=== PATIENT | male | born 1995 | race Hispanic/Latino ===

== ENCOUNTER 2020-09-19 15:58 | Inpatient (IN) | payer SELFPAY ==
[2020-09-19] MEDS ORDERED: Sodium Bicarb 50 MEQ/50 ML Abboject 8.4% SYRINGE ONE (16:16)
[2020-09-19] MEDS ORDERED: Sodium Bicarbonate 150 MEQ in Sodium Chloride 0.45% 1,000 ML IV SCH (16:30)
[2020-09-19 16:32] LABS: #Basophils 0.1 thou/uL (0.0-0.2); #Lymphocytes 3.7 thou/uL (1.20-3.40); #Monocytes 0.6 thou/uL (0.11-0.59); #Neutrophils 9.8 thou/uL (1.40-6.50); %Basophils 0.7 % (0.0-1.0); %Eosinophils 0.3 % (0.0-10.0); %Lymphocytes 25.8 % (21.0-51.0); %Monocytes 4.1 % (0.0-10.0); %Neutrophils 69.1 % (42.0-75.0); Mean Corpuscular HGB CONC 32.6 g/dL (32.0-36.0); Mean Corpuscular Hemoglobin 29.4 pg (27.0-31.0); Mean Platelet Volume 9.7 fL (7.4-10.4); Platelet Count 287 thou/uL (130-400); Red Blood Cell (RBC) Count 6.12 mill/uL (4.70-6.10); White Blood Cell (WBC) Count 14.2 thou/uL (4.8-10.8)
[2020-09-19 16:48] LABS: Bacteria/HPF None Seen HPF (None Seen); Bilirubin Negative (Negative); Blood, Urine 1+ (Negative); Clarity Clear (Clear); Glucose, Urine (Dipstick) Greater than 1000 mg/dL (Negative); Ketone, Urine Greater than 150 mg/dL (Negative); Leukocyte Negative Leu/uL (Negative); Nitrite Negative (Negative); Protein, Urine (Dipstick) 100 mg/dL (Neg-Trace); RBC/HPF None Seen HPF (0-3); Squamous Epithelial 0-3 HPF (0-3); Urobilinogen Normal mg/dL (Less than 2); WBC/HPF 0-3 HPF (0-3); pH, Urine 5.5 (5.0-9.0)
[2020-09-19 16:56] LABS: Magnesium 2.2 mg/dL (1.6-2.6); Phosphorus 5.5 mg/dL (2.3-4.7)
[2020-09-19 16:59] LABS: Acetaminophen Less than 6.0 mcg/mL (10.0-30.0); Alcohol Less than 10 mg/dL (Less than 10); Salicylate Less than 8.0 mg/dL (15.0-30.0)
[2020-09-19 17:01] LABS: Amphetamine Not Detected (NotDetected); Barbiturates Screen Not Detected (NotDetected); Benzodiazepine Screen Not Detected (NotDetected); Cocaine Metabolite Screen Not Detected (NotDetected); Medtox Control Line Valid? VALID (VALID); Medtox Reader # READER 4; Methadone Not Detected (NotDetected); Methamphetamine Not Detected (NotDetected); Opiate Screen Not Detected (NotDetected); Oxycodone Screen Not Detected (NotDetected); Phencyclidine (PCP) Not Detected (NotDetected); THC/Cannabinoid Screen Not Detected (NotDetected); Tricyclic Screen Not Detected (NotDetected)
--- NOTE | 2020-09-19 17:47 | RAD ---
PORTABLE CHEST: 09/19/20 PROVIDED CLINICAL HISTORY: Altered mental status. FINDINGS: The cardiac and mediastinal silhouette is within normal limits. No focal consolidation is evident. No evidence for pleural fluid or pneumothorax, with limitations due to the supine nature of the study. IMPRESSION: No evidence for an acute cardiopulmonary process. POS: CAITIE
[2020-09-19 18:10] LABS: ALT (SGPT) 13 U/L (8-55); AST (SGOT) 11 U/L (5-34); Albumin 4.4 g/dL (3.5-5.0); Alkaline Phosphatase 124 U/L (40-110); BUN (Urea Nitrogen) 15 mg/dL (8.9-20.6); Bilirubin, Total 0.3 mg/dL (0.2-1.2); Calc. Creatinine Clearance 0 mL/min (70-130); Calcium 8.9 mg/dL (7.8-10.44); Chloride 106 mmol/L (98-107); Globulin 2.7 g/dL (2.4-3.5); Potassium 4.2 mmol/L (3.5-5.1); Protein, Total 7.1 g/dL (6.0-8.3); Sodium 139 mmol/L (136-145)
[2020-09-19 18:15] LABS: Carbon Dioxide Less than 8 mmol/L (22-29); Glucose 553 mg/dL (70-105)
[2020-09-19 18:42] LABS: BUN (Urea Nitrogen) 13 mg/dL (8.9-20.6); Calc. Creatinine Clearance 0 mL/min (70-130); Calcium 7.4 mg/dL (7.8-10.44); Carbon Dioxide Less than 8 mmol/L (22-29); Chloride 113 mmol/L (98-107); Glucose 461 mg/dL (70-105); Potassium 4.5 mmol/L (3.5-5.1); Sodium 142 mmol/L (136-145)
[2020-09-19] MEDS ORDERED: INSULIN REGULAR IN 0.9 % NACL 100 UNIT/100 ML BAG IVPB SCH (18:45)
[2020-09-19] MEDS ORDERED: INSULIN REGULAR IN 0.9 % NACL 100 UNIT/100 ML BAG ONE (18:48)
[2020-09-19] MEDS ORDERED: Ondansetron ODT 4 MG TAB PO PRN (19:40)
[2020-09-19] MEDS ORDERED: Electrolyte Replacement Protocol 1 EACH IVPB SCH (19:40)
[2020-09-19] MEDS ORDERED: Sodium Chloride 0.9% 1,000 ML IV PRN ×4 (19:40)
[2020-09-19] MEDS ORDERED: Ondansetron PF 4 MG/2 ML Vial IVP PRN (19:40)
[2020-09-19] MEDS ORDERED: NS 0.9% w/ 20 MEQ KCL 1,000 ML IV PRN ×2 (19:40)
[2020-09-19] MEDS ORDERED: Dextrose 5 %-0.45 % NaCl 1,000 ML IV PRN (19:40)
[2020-09-19] MEDS ORDERED: Electrolyte Replacement Protocol FS PRN (19:45)
[2020-09-19] MEDS ORDERED: HUMULIN R 100 UNITS in Sodium Chloride 0.9% 100 ML IVPB SCH (19:45)
--- NOTE | 2020-09-19 19:57 | PDOC.HHP ---
Hospitalist HPI Nausea and vomiting History of Present Illness: This is a 25-year-old male patient with a history of diabetes mellitus, hyperlipidemia who presents with a 3-day history of general unwellness with nausea and vomiting. He is only Syrian-speaking and his friend who came with him today interpretation. He notes that he was diagnosed with diabetes about 3 months ago and has been on oral medications. It appears he ran out of his medication and could not refill. He notes having not had any money. 3 days ago started having nausea and vomiting with general unwellness which became worse of some confusion. He also had associated with polyuria polydipsia and dry mouth however denies any dysuria fever cough or chest pain. On arrival blood pressure was 142/105, pulse 140, respirate 36, saturating 90% on room air. He was afebrile temperature of 96.8. His labs showed leukocytosis of 14.2 with no bands. Initial bicarb was less than 8, elevated anion gap beta hydroxybutyrate was 12.4 and glucose was 553. Chest x-ray showed no evidence of acute cardiopulmonary process. He was started on DKA protocol prior to hospitalist team consulted for admission. Patient notes having felt a little better since starting fluids Allergies/Adverse Reactions: Allergy/AdvReac Type Severity Reaction Status Date / Time No Known Allergies Allergy Unverified 09/19/20 16:25 Past History: PMHx: Diabetes mellitus, hyperlipidemia PSHx: None of significance. FHx: None of significant Social: Lives with his girlfriend. Does not drink alcohol smoke or use illicit drugs Hospitalist HPI ROS Constitutional: reports: weakness, malaise. denies: fever, chills, sweats Cardiovascular: denies: chest pain, palpitations, orthopnea, paroxysmal noc. dyspnea Gastrointestinal: reports: nausea, vomiting. denies: abdominal pain, diarrhea, constipation Genitourinary: denies: dysuria, frequency, incontinence, hematuria, retention Neurological: reports: confusion. denies: weakness, numbness, incoordination, change in speech All other systems reviewed; all pertinent +/- noted in HPI/Subj Hospitalist Exam General Appearance: awake alert, ill appearing General - other findings: In no acute distress Eye: PERRL, anicteric sclera Heart: no murmur, no gallops, no rubs Heart - other findings: Tachycardic Respiratory: CTAB, no wheezes, no rales, no ronchi Gastrointestinal: soft, non-tender, non-distended, normal bowel sounds Extremities: no cyanosis, no clubbing, no edema Neurological: cranial nerve grossly intact, no weakness, no focal deficits Psychiatric: normal affect, normal behavior, A&O x 3 Hospitalist Results Result Diagrams: 09/19/20 16:00 09/19/20 18:14 Lab results: Laboratory Last Values WBC 14.2 thou/uL (4.8-10.8) H 09/19/20 16:00 RBC 6.12 mill/uL (4.70-6.10) H 09/19/20 16:00 Hgb 18.0 g/dL (14.0-18.0) 09/19/20 16:00 Hct 55.1 % (42.0-52.0) H 09/19/20 16:00 MCV 90.0 fL (78.0-98.0) 09/19/20 16:00 MCH 29.4 pg (27.0-31.0) 09/19/20 16:00 MCHC 32.6 g/dL (32.0-36.0) 09/19/20 16:00 RDW 12.0 % (11.5-14.5) 09/19/20 16:00 Plt Count 287 thou/uL (130-400) 09/19/20 16:00 MPV 9.7 fL (7.4-10.4) 09/19/20 16:00 Neutrophils % 69.1 % (42.0-75.0) 09/19/20 16:00 Lymphocytes % 25.8 % (21.0-51.0) 09/19/20 16:00 Monocytes % 4.1 % (0.0-10.0) 09/19/20 16:00 Eosinophils % 0.3 % (0.0-10.0) 09/19/20 16:00 Basophils % 0.7 % (0.0-1.0) 09/19/20 16:00 Neutrophils # 9.8 thou/uL (1.40-6.50) H 09/19/20 16:00 Lymphocytes # 3.7 thou/uL (1.20-3.40) H 09/19/20 16:00 Monocytes # 0.6 thou/uL (0.11-0.59) H 09/19/20 16:00 Eosinophils # 0.0 thou/uL (0.0-0.7) 09/19/20 16:00 Basophils # 0.1 thou/uL (0.0-0.2) 09/19/20 16:00 Sodium 142 mmol/L (136-145) 09/19/20 18:14 Potassium 4.5 mmol/L (3.5-5.1) 09/19/20 18:14 Chloride 113 mmol/L (98-107) H 09/19/20 18:14 Carbon Dioxide Less than 8 mmol/L (22-29) L* 09/19/20 18:14 Anion Gap TNP 09/19/20 18:14 BUN 13 mg/dL (8.9-20.6) 09/19/20 18:14 Creatinine 1.31 mg/dL (0.7-1.3) H 09/19/20 18:14 Estimated GFR (MDRD) 66 09/19/20 18:14 Glucose 461 mg/dL (70-105) H 09/19/20 18:14 POC Glucose 410 mg/dL (70-100) H 09/19/20 18:21 Calcium 7.4 mg/dL (7.8-10.44) L 09/19/20 18:14 Phosphorus 5.5 mg/dL (2.3-4.7) H 09/19/20 16:00 Magnesium 2.2 mg/dL (1.6-2.6) 09/19/20 16:00 Total Bilirubin 0.3 mg/dL (0.2-1.2) 09/19/20 16:00 AST 11 U/L (5-34) 09/19/20 16:00 ALT 13 U/L (8-55) 09/19/20 16:00 Alkaline Phosphatase 124 U/L (40-110) H 09/19/20 16:00 Serum Total Protein 7.1 g/dL (6.0-8.3) 09/19/20 16:00 Albumin 4.4 g/dL (3.5-5.0) 09/19/20 16:00 Globulin 2.7 g/dL (2.4-3.5) 09/19/20 16: Albumin/Globulin Ratio 1.6 g/dL (1.2-2.2) 09/19/20 16:00 Urine Color Light-Yellow (Yellow) 09/19/20 16: Urine Clarity Clear (Clear) 09/19/20 16: Urine pH 5.5 (5.0-9.0) 09/19/20 16: Ur Specific Morton 1.030 (1.002-1.036) 09/19/20: Urine Protein 100 mg/dL (Neg-Trace) A 09/19/20 Urine Glucose (UA) Greater than 1000 mg/dL (Negative) A 09/19/20 Urine Ketones Greater than 150 mg/dL (Negative) A 09/19/20 Urine Blood 1+ (Negative) A 09/19/20 Urine Nitrite Negative (Negative) 09/19/20: Urine Bilirubin Negative (Negative) 09/19/20: Urine Urobilinogen Normal mg/dL (Less than 2) 09/19/20: Ur Leukocyte Esterase Negative Carol/uL (Negative) 09/19/20 16: Urine RBC None Seen HPF (0-3) 09/19/20: Urine WBC 0-3 HPF (0-3) 09/19/20 16: Ur Squamous Epith Cells 0-3 HPF (0-3) 09/19/20 16: Urine Bacteria None Seen HPF (None Seen) 09/19/20 16: Salicylates Less than 8.0 mg/dL (15.0-30.0) L 09/19/20 16:00 Urine Opiates Screen Not Detected (NotDetected) 09/19/20: Ur Oxycodone Screen Not Detected (NotDetected) 09/19/20 16: Urine Methadone Screen Not Detected (NotDetected) 09/19/20: Ur Propoxyphene Screen Not Detected (NotDetected) 09/19/20: Acetaminophen Less than 6.0 mcg/mL (10.0-30.0) L 09/19/20 16:00 Ur Barbiturates Screen Not Detected (NotDetected) 09/19/20: Ur Tricyclics Screen Not Detected (NotDetected) 09/19/20 16:21 Ur Phencyclidine Scrn Not Detected (NotDetected) 09/19/20 16:21 Ur Amphetamines Screen Not Detected (NotDetected) 09/19/20 16:21 U Methamphetamines Scrn Not Detected (NotDetected) 09/19/20 16:21 U Benzodiazepines Scrn Not Detected (NotDetected) 09/19/20 16:21 U Cocaine Metab Screen Not Detected (NotDetected) 09/19/20 16:21 U Cannabinoids Screen Not Detected (NotDetected) 09/19/20 16:21 Drug Screen Comment () 09/19/20 16:21 Plasma Alcohol Less than 10 mg/dL (Less than 10) 09/19/20 16:00 B-Hydroxybutyrate 12.44 mmol/L (0.02-0.27) H 09/19/20 16:00 Hospitalist H&P A/P Plan: This is a 25-year-old male patient with a history of diabetes mellitus and hyperlipidemia who presents with nausea and vomiting currently being managed for DKA. DKA Severe metabolic acidosis with elevated beta hydroxybutyrate. No apparent trigger. He notes he ran out of his oral hypoglycemic agents He has a mild leukocytosis however lungs are clear with no indication of a UTI Check ABG We will do a blood culture and cover him on antibiotics for now. Continue on DKA protocol Monitor in IMCU. VT prophylaxisLovenox CODE STATUSfull code
[2020-09-19 20:37] LABS: BUN (Urea Nitrogen) 12 mg/dL (8.9-20.6); Calc. Creatinine Clearance 0 mL/min (70-130); Calcium 7.7 mg/dL (7.8-10.44); Chloride 110 mmol/L (98-107); Glucose 444 mg/dL (70-105); Potassium 4.3 mmol/L (3.5-5.1); Sodium 139 mmol/L (136-145)
[2020-09-19 20:44] LABS: Carbon Dioxide Less than 8 mmol/L (22-29)
[2020-09-19] MEDS ORDERED: Metoprolol Tartrate 5 MG/5 ML VIAL ONE (21:35)
[2020-09-19] MEDS ORDERED: Metoprolol Tartrate 5 MG/5 ML VIAL IVP PRN (21:47)
[2020-09-19] MEDS: Piperacillin/Tazobactam 4.5 GM in Sodium Chloride 0.9% 100 ML IVPB SCH (22:10)
[2020-09-19 23:49] VITALS: BMI 23.5
[2020-09-20 00:10] LABS: BUN (Urea Nitrogen) 11 mg/dL (8.9-20.6); Calc. Creatinine Clearance 128 mL/min (70-130); Calcium 7.8 mg/dL (7.8-10.44); Chloride 116 mmol/L (98-107); Glucose 201 mg/dL (70-105); Potassium 4.2 mmol/L (3.5-5.1); Sodium 142 mmol/L (136-145)
[2020-09-20 00:18] LABS: Carbon Dioxide Less than 8 mmol/L (22-29)
[2020-09-20] MEDS: Piperacillin/Tazobactam 4.5 GM in Sodium Chloride 0.9% 100 ML IVPB SCH ×3 (01:10→14:09)
[2020-09-20] MEDS ORDERED: Piperacillin/Tazobactam 4.5 GM VIAL ONE ×2 (01:14→01:15)
[2020-09-20 04:36] LABS: #Lymphocytes 1.6 thou/uL (1.20-3.40); #Monocytes 0.8 thou/uL (0.11-0.59); %Basophils 0.3 % (0.0-1.0); %Eosinophils 0.2 % (0.0-10.0); %Lymphocytes 16.7 % (21.0-51.0); %Monocytes 8.6 % (0.0-10.0); %Neutrophils 74.1 % (42.0-75.0); Hemoglobin 13.8 g/dL (14.0-18.0); Mean Corpuscular HGB CONC 33.9 g/dL (32.0-36.0); Mean Corpuscular Hemoglobin 29.3 pg (27.0-31.0); Mean Corpuscular Volume 86.5 fL (78.0-98.0); Mean Platelet Volume 8.9 fL (7.4-10.4); Platelet Count 185 thou/uL (130-400); RBC Distribution Width 11.9 % (11.5-14.5); White Blood Cell (WBC) Count 9.4 thou/uL (4.8-10.8)
[2020-09-20 04:54] LABS: Anion Gap 16 mmol/L (10-20); BUN (Urea Nitrogen) 11 mg/dL (8.9-20.6); Calc. Creatinine Clearance 149 mL/min (70-130); Calcium 7.7 mg/dL (7.8-10.44); Carbon Dioxide 10 mmol/L (22-29); Chloride 117 mmol/L (98-107); Glucose 103 mg/dL (70-105); Potassium 3.2 mmol/L (3.5-5.1); Sodium 140 mmol/L (136-145)
[2020-09-20] MEDS ORDERED: D5 1/2 NS w/20 mEq KCL 1,000 ML ONE ×4 (08:46→22:18)
[2020-09-20] MEDS: D5 1/2 NS w/20 mEq KCL 1,000 ML IV PRN ×2 (08:47→17:51)
[2020-09-20] MEDS ORDERED: FLU VACC QS2020-21(6MOS UP)/PF 60 MCG/0.5 ML SYRINGE IM ONE (09:00)
[2020-09-20] MEDS ORDERED: Enoxaparin Sodium 40 MG/0.4 ML SYRINGE ONE (09:28)
[2020-09-20] MEDS ORDERED: Potassium Bicarbonate/Cit Ac 25 MEQ TAB ONE (09:30)
[2020-09-20] MEDS: Enoxaparin Sodium 40 MG/0.4 ML SYRINGE SC SCH (09:57)
[2020-09-20] MEDS ORDERED: INSULIN REGULAR IN 0.9 % NACL 100 UNIT/100 ML BAG ONE (10:00)
[2020-09-20] MEDS: Potassium Chloride 20 MEQ in Premix Bag 1 BAG IVPB SCH ×4 (10:31→17:10)
[2020-09-20 10:56] LABS: Anion Gap 13 mmol/L (10-20); BUN (Urea Nitrogen) 11 mg/dL (8.9-20.6); Calc. Creatinine Clearance 139 mL/min (70-130); Calcium 7.9 mg/dL (7.8-10.44); Carbon Dioxide 14 mmol/L (22-29); Chloride 117 mmol/L (98-107); Glucose 167 mg/dL (70-105); Potassium 3.2 mmol/L (3.5-5.1); Sodium 141 mmol/L (136-145)
[2020-09-20 14:30] LABS: Anion Gap 10 mmol/L (10-20); BUN (Urea Nitrogen) 10 mg/dL (8.9-20.6); Calc. Creatinine Clearance 149 mL/min (70-130); Calcium 7.6 mg/dL (7.8-10.44); Carbon Dioxide 15 mmol/L (22-29); Chloride 116 mmol/L (98-107); Glucose 217 mg/dL (70-105); Potassium 3.3 mmol/L (3.5-5.1); Sodium 138 mmol/L (136-145)
[2020-09-20] MEDS ORDERED: Potassium Chloride 20 MEQ/100 ML PREMIX BAG ONE (15:26)
--- NOTE | 2020-09-20 17:01 | PDOC.HOSPP ---
- Subjective Encounter Date: 09/20/20 Subjective: Patient is alert and awake. Slightly lethargic but answering questions appropriately. Mental status intact. - Objective Vital Signs & Weight: Vital Signs (12 hours) Temp Pulse Resp BP Pulse Ox 09/20/20 16:00 98.8 F 09/20/20 14:00 68 16 116/70 99 09/20/20 13:00 75 16 118/73 99 09/20/20 12:00 90 13 120/78 100 09/20/20 11:00 80 15 115/77 99 09/20/20 10:00 98.9 F 89 17 115/77 100 09/20/20 09:00 82 15 110/72 100 09/20/20 08:00 82 12 112/73 100 09/20/20 07:00 86 13 123/73 100 09/20/20 06:00 18 122/72 09/20/20 05:00 99 18 133/84 Weight Admit Weight 178 lb Weight 178 lb Most Recent Monitor Data Heart Rate from ECG 69 NIBP 123/80 Respiration from ECG 15 SpO2 100 I&O: 09/19/20 09/20/20 09/21/20 06:59 06:59 06:59 Intake Total 2856 670 Output Total 2750 1450 Balance 106 -780 Result Diagrams: 09/20/20 03:58 09/20/20 13:55 Additional Labs: Accuchecks 09/20/20 09/20/20 09/20/20 16:00 15:04 14:13 POC Glucose 147 H 148 H 179 H 09/20/20 09/20/20 09/20/20 13:03 12:02 10:54 POC Glucose 212 H 190 H 184 H 09/20/20 09/20/20 09/20/20 09:39 08:55 07:28 POC Glucose 125 H 151 H 152 H 09/20/20 09/20/20 09/20/20 05:54 04:13 03:24 POC Glucose 142 H 105 H 86 09/20/20 09/20/20 09/19/20 02:13 00:08 23:13 POC Glucose 75 116 H 148 H 09/19/20 09/19/20 20:37 18:21 POC Glucose 392 H 410 H Hospitalist ROS - Medication Medications: Active Medications Generic Name Dose Route Start Last Admin Trade Name Freq PRN Reason Stop Dose Admin Enoxaparin Sodium 40 mg 09/20/20 09:00 09/20/20 09:57 Enoxaparin Sodium 40 Mg/0.4 Ml Syringe SC 40 mg 0900 JOSE Administration Potassium Chloride/Dextrose/Sod Cl 1,000 mls @ 250 mls/hr 09/19/20 19:40 09/20/20 08:47 D5 1/2 Ns W/20 Meq Kcl IV 1,000 mls .Q4H PRN Administration Step 4 of DKA Protocol Protocol Piperacillin Sod/Tazobactam 100 mls @ 200 mls/hr 09/19/20 22:00 09/20/20 14:09 Sod 4.5 gm/ Sodium Chloride IVPB 100 mls Q8HR JOSE Administration Sodium Chloride 10 ml 09/19/20 21:00 09/20/20 10:32 Flush - Normal Saline 10 Ml Syringe IVF 10 ml Q12HR JOSE Administration Hospitalist Exam Vitals: Vital Signs (12 hours) Temp Pulse Resp BP Pulse Ox 09/20/20 16:00 98.8 F 09/20/20 14:00 68 16 116/70 99 09/20/20 13:00 75 16 118/73 99 09/20/20 12:00 90 13 120/78 100 09/20/20 11:00 80 15 115/77 99 09/20/20 10:00 98.9 F 89 17 115/77 100 09/20/20 09:00 82 15 110/72 100 09/20/20 08:00 82 12 112/73 100 09/20/20 07:00 86 13 123/73 100 09/20/20 06:00 18 122/72 09/20/20 05:00 99 18 133/84 Weight Admit Weight 178 lb Weight 178 lb Most Recent Monitor Data Heart Rate from ECG 69 NIBP 123/80 Respiration from ECG 15 SpO2 100 General - other findings: Slightly lethargic, dry mouth Eye: anicteric sclera ENT: normocephalic atraumatic Neck: supple Heart: RRR, no murmur, no gallops, no rubs Respiratory: CTAB, no wheezes, no rales, no ronchi Gastrointestinal: soft, non-tender, non-distended Extremities: no clubbing, no edema Neurological: cranial nerve grossly intact Psychiatric: normal affect, normal behavior Hosp A/P (1) Diabetes mellitus Code(s): E11.9 - TYPE 2 DIABETES MELLITUS WITHOUT COMPLICATIONS Status: Acute (2) DKA (diabetic ketoacidoses) Code(s): E11.10 - TYPE 2 DIABETES MELLITUS WITH KETOACIDOSIS WITHOUT COMA Status: Acute (3) Hyperlipidemia Code(s): E78.5 - HYPERLIPIDEMIA, UNSPECIFIED Status: Acute - Plan Assessment Patient is a 25-year-old [place]er-speaking male with a recent diagnosis of diabetes mellitus 3 months ago. He was prescribed oral hypoglycemic agent. He is admitted with DKA after he presented with nausea, vomiting and generalized weakness. Is currently in the ER due to lack of bedding. Is receiving insulin infusion while on D5 half NS infusion. His anion gap & bicarb is improving. DKA Hypokallemia Hyperlipidemia Plan: Continue insulin infusion until bicarb is more than 18 anion gap 12 or less I will continue patient on D5 half infusion since blood glucose is less than 250 Continue hourly fingerstick glucose and every 4 hours BMP Follow up HbA1c PRN zofran Good prognosis
[2020-09-20 18:37] LABS: Anion Gap 8 mmol/L (10-20); BUN (Urea Nitrogen) 8 mg/dL (8.9-20.6); Calc. Creatinine Clearance 158 mL/min (70-130); Calcium 7.8 mg/dL (7.8-10.44); Carbon Dioxide 18 mmol/L (22-29); Chloride 114 mmol/L (98-107); Glucose 167 mg/dL (70-105); Potassium 3.4 mmol/L (3.5-5.1); Sodium 137 mmol/L (136-145)
[2020-09-20 18:43] LABS: Hemoglobin A1c Greater than 14.0 % (4.0-6.0)
[2020-09-20 22:26] LABS: Anion Gap 8 mmol/L (10-20); BUN (Urea Nitrogen) 7 mg/dL (8.9-20.6); Calc. Creatinine Clearance 178 mL/min (70-130); Calcium 7.8 mg/dL (7.8-10.44); Carbon Dioxide 17 mmol/L (22-29); Chloride 114 mmol/L (98-107); Glucose 148 mg/dL (70-105); Potassium 3.1 mmol/L (3.5-5.1); Sodium 136 mmol/L (136-145)
[2020-09-20] MEDS ORDERED: Potassium Chloride 20 MEQ TAB PO SCH (23:45)
[2020-09-21] MEDS ORDERED: Potassium Chloride 20 MEQ TAB ONE ×2 (00:09→08:57)
[2020-09-21] MEDS ORDERED: Dextrose 5% in Water 1,000 ML IV PRN (00:31)
[2020-09-21] MEDS ORDERED: Dextrose 50% Abboject 50 ML SYRINGE SLOW IVP PRN (00:31)
[2020-09-21] MEDS ORDERED: Insulin Glargine 70 UNITS in Pre-Filled Syringe 1 EACH SC SCH (01:00)
[2020-09-21] MEDS: Piperacillin/Tazobactam 4.5 GM in Sodium Chloride 0.9% 100 ML IVPB SCH ×2 (01:57→13:30)
[2020-09-21 05:47] LABS: Anion Gap 9 mmol/L (10-20); BUN (Urea Nitrogen) 5 mg/dL (8.9-20.6); Calc. Creatinine Clearance 165 mL/min (70-130); Calcium 8.2 mg/dL (7.8-10.44); Carbon Dioxide 19 mmol/L (22-29); Chloride 110 mmol/L (98-107); Glucose 246 mg/dL (70-105); Potassium 3.3 mmol/L (3.5-5.1); Sodium 135 mmol/L (136-145)
--- NOTE | 2020-09-21 06:11 | PDOC.BPN ---
- Brief Progress Note Encounter Date: 09/21/20 I was asked to review patient's DKA protocol as he is Already closed and bicarb was around 17. I went to evaluate the patient she was sitting in bed eating and was generally comfortable. His potassium was as low as 3.1 so I asked that his insulin drip discontinued and given 40 mEq oral potassium It is not clear how much insulin he got an antibiotic 24 hours however a rough estimate was about 165 unit Also decided to transition him started on 70 units of Lantus for now We will do correctional insulin and adjust total insulin dose as necessary. We will do initial every Accu-Cheks given that he is insulin pedro luis and it is unclear how much his total 24 insulin was. We will downgrade him from IMCU to medical
[2020-09-21] MEDS ORDERED: Electrolyte Replacement Protocol 1 EACH FS SCH (06:15)
[2020-09-21] MEDS ORDERED: Potassium Chloride 20 MEQ TAB PO SCH (06:45)
[2020-09-21 07:33] LABS: Hemoglobin 13.6 g/dL (14.0-18.0); Mean Corpuscular HGB CONC 35.4 g/dL (32.0-36.0); Mean Corpuscular Hemoglobin 31.1 pg (27.0-31.0); Mean Corpuscular Volume 87.6 fL (78.0-98.0); Mean Platelet Volume 9.2 fL (7.4-10.4); Platelet Count 125 thou/uL (130-400); RBC Distribution Width 12.2 % (11.5-14.5); Red Blood Cell (RBC) Count 4.38 mill/uL (4.70-6.10); White Blood Cell (WBC) Count 5.4 thou/uL (4.8-10.8)
[2020-09-21 07:47] LABS: Anion Gap 8 mmol/L (10-20); BUN (Urea Nitrogen) 5 mg/dL (8.9-20.6); Calc. Creatinine Clearance 169 mL/min (70-130); Calcium 7.8 mg/dL (7.8-10.44); Carbon Dioxide 20 mmol/L (22-29); Chloride 111 mmol/L (98-107); Glucose 237 mg/dL (70-105); Magnesium 1.7 mg/dL (1.6-2.6); Potassium 3.2 mmol/L (3.5-5.1); Sodium 136 mmol/L (136-145)
[2020-09-21 07:54] LABS: Eosinophils 2 % (0-10); Lymphocytes 42 % (21-51); MDiff Complete? YES; Monocytes 7 % (0-10); Neutrophil 42 % (42-75); Platelet Morphology Comment Appears Decreased; Reactive Lymphocytes 7 % (0-10)
[2020-09-21] MEDS ORDERED: Potassium Chloride 20 MEQ/100 ML PREMIX BAG ONE (08:55)
[2020-09-21] MEDS ORDERED: Enoxaparin Sodium 40 MG/0.4 ML SYRINGE ONE (08:55)
[2020-09-21] MEDS ORDERED: Magnesium 2 GM/50 ML 2 GM in Premix Bag 1 BAG IVPB SCH (09:00)
[2020-09-21] MEDS: Enoxaparin Sodium 40 MG/0.4 ML SYRINGE SC SCH (09:03)
[2020-09-21] MEDS: Sodium Chloride 0.9% 1,000 ML IV SCH ×3 (09:06→13:51)
[2020-09-21] MEDS ORDERED: Acetaminophen 325 MG TAB PO PRN (12:08)
[2020-09-21 13:12] LABS: Anion Gap 8 mmol/L (10-20); BUN (Urea Nitrogen) 5 mg/dL (8.9-20.6); Calc. Creatinine Clearance 184 mL/min (70-130); Calcium 7.9 mg/dL (7.8-10.44); Carbon Dioxide 21 mmol/L (22-29); Chloride 112 mmol/L (98-107); Glucose 230 mg/dL (70-105); Potassium 3.4 mmol/L (3.5-5.1); Sodium 138 mmol/L (136-145)
[2020-09-21] MEDS ORDERED: HumaLOG 300 UNITS/3 ML VIAL SC PRN ×2 (13:33→22:01)
--- NOTE | 2020-09-21 13:37 | PDOC.HOSPP ---
- Subjective Encounter Date: 09/21/20 Subjective: Patient currently has no complaint. DKA resolved. Patient is tolerating meals. - Objective Vital Signs & Weight: Vital Signs (12 hours) Temp Pulse Resp BP Pulse Ox 09/21/20 12:00 98.6 F 71 16 139/81 100 09/21/20 10:00 98.7 F 66 15 137/85 100 09/21/20 08:00 98.7 F 60 15 135/81 100 09/21/20 06:05 98.2 F 57 L 16 133/70 99 Weight Admit Weight 178 lb Weight 178 lb Most Recent Monitor Data Heart Rate from ECG 58 NIBP 114/62 Respiration from ECG 14 SpO2 99 I&O: 09/20/20 09/21/20 09/22/20 06:59 06:59 06:59 Intake Total 2856 1210 360 Output Total 2750 2900 400 Balance 106 -1690 -40 Result Diagrams: 09/21/20 06:48 09/21/20 12:44 Additional Labs: Accuchecks 09/21/20 09/21/20 09/20/20 08:46 05:22 22:23 POC Glucose 194 H 228 H 129 H 09/20/20 09/20/20 09/20/20 21:04 20:13 19:36 POC Glucose 149 H 160 H 159 H 09/20/20 09/20/20 09/20/20 19:04 18:11 17:17 POC Glucose 162 H 163 H 163 H 09/20/20 09/20/20 09/20/20 16:00 15:04 14:13 POC Glucose 147 H 148 H 179 H 09/20/20 09/20/20 09/20/20 13:03 08:55 05:54 POC Glucose 212 H 151 H 142 H 09/20/20 09/20/20 04:13 02:13 POC Glucose 105 H 75 Hospitalist ROS - Medication Medications: Active Medications Generic Name Dose Route Start Last Admin Trade Name Freq PRN Reason Stop Dose Admin Enoxaparin Sodium 40 mg 09/20/20 09:00 09/21/20 09:03 Enoxaparin Sodium 40 Mg/0.4 Ml Syringe SC 40 mg 0900 JOSE Administration Sodium Chloride 10 ml 09/19/20 21:00 09/21/20 09:06 Flush - Normal Saline 10 Ml Syringe IVF 10 ml Q12HR JOSE Administration Sodium Chloride 10 ml 09/19/20 20:00 09/21/20 13:30 Flush - Normal Saline 10 Ml Syringe IVF 10 ml PRN PRN Administration Saline Flush Hospitalist Exam Vitals: Vital Signs (12 hours) Temp Pulse Resp BP Pulse Ox 09/21/20 12:00 98.6 F 71 16 139/81 100 09/21/20 10:00 98.7 F 66 15 137/85 100 09/21/20 08:00 98.7 F 60 15 135/81 100 09/21/20 06:05 98.2 F 57 L 16 133/70 99 Weight Admit Weight 178 lb Weight 178 lb Most Recent Monitor Data Heart Rate from ECG 58 NIBP 114/62 Respiration from ECG 14 SpO2 99 General Appearance: NAD, awake alert Eye: PERRL, anicteric sclera ENT: no oropharyngeal lesions, moist mucosa Neck: supple, no JVD Heart: RRR, no murmur Respiratory: CTAB, no wheezes, no rales Gastrointestinal: soft, non-tender, non-distended, normal bowel sounds Extremities: no cyanosis, no edema Skin: normal turgor, no rashes Neurological: cranial nerve grossly intact, no focal deficits Musculoskeletal: normal tone, normal strength Psychiatric: normal affect, normal behavior, A&O x 3 Hosp A/P (1) DKA (diabetic ketoacidoses) Code(s): E11.10 - TYPE 2 DIABETES MELLITUS WITH KETOACIDOSIS WITHOUT COMA Status: Acute (2) Hyperlipidemia Code(s): E78.5 - HYPERLIPIDEMIA, UNSPECIFIED Status: Acute - Plan DKA resolved. Lantus insulin initiated along with insulin sliding scale. Noted hemoglobin A1c is very much elevated to 14. Patient will have to be treated with insulin therapy. He will need insulin teaching. He is currently doing well. We will monitor and adjust long-acting insulin over the next 24 hours for optimal outpatient blood glucose control Anticipating discharge within the next 24 hours. Discontinue antibiotics. Resume Lipitor.
--- NOTE | 2020-09-21 14:27 | EKG ---
Test Reason : Blood Pressure : / mmHG Vent. Rate : 134 BPM Atrial Rate : 129 BPM P-R Int : 000 ms QRS Dur : 110 ms QT Int : 398 ms P-R-T Axes : 000 102 058 degrees QTc Int : 594 ms Supraventricular tachycardia Rightward axis Borderline ECG Confirmed by BA WADSWORTH DO ([id number]), associate editor ADDIE NGO ([id number]) on 09/21/2020 2:27:18 PM Referred By: Confirmed By:BA WADSWORTH DO
[2020-09-21 17:31] LABS: SARS-CoV-2 PCR by NAA Not Detected (NotDetected)
[2020-09-21] MEDS ORDERED: Atorvastatin Calcium 20 MG TAB PO SCH (21:00)
[2020-09-22] MEDS: Sodium Chloride 0.9% 1,000 ML IV SCH ×2 (00:30→09:57)
[2020-09-22 05:18] LABS: Anion Gap 10 mmol/L (10-20); BUN (Urea Nitrogen) 7 mg/dL (8.9-20.6); Calc. Creatinine Clearance 226 mL/min (70-130); Calcium 7.7 mg/dL (7.8-10.44); Carbon Dioxide 19 mmol/L (22-29); Chloride 110 mmol/L (98-107); Glucose 144 mg/dL (70-105); Potassium 3.1 mmol/L (3.5-5.1); Sodium 136 mmol/L (136-145)
[2020-09-22] MEDS ORDERED: Potassium Chloride 20 MEQ TAB PO SCH (07:00)
[2020-09-22] MEDS: Enoxaparin Sodium 40 MG/0.4 ML SYRINGE SC SCH (07:58)
[2020-09-22] MEDS ORDERED: Insulin Glargine 70 UNITS in Pre-Filled Syringe 1 EACH SC SCH (09:00)
--- NOTE | 2020-09-22 11:15 | PDOC.DS.DS ---
Provider Date of Admission: 09/19/20 18:44 Date of Discharge: 09/22/20 Admitting Provider: Johnathan Gee MD Primary Care Physician: Unknown Course Hospital Course: 25-year-old Mongolian-speaking gentleman diagnosed with type 2 diabetes about 3 months ago and started on Metformin therapy presented to the emergency department with a complaint of nausea vomiting and abdominal pain. Patient stated he ran out of his medications she could not afford them. Blood work done in the emergency department showed patient is in DKA with a bicarb of 8 and high anion gap. DKA protocol was initiated in the ED and patient admitted for further management. Patient was aggressively hydrated with IV normal saline, and started on insulin drip per DKA protocol. Electrolyte abnormalities including hypokalemia were corrected. DKA resolved within 24 hours and patient started on Lantus insulin 70 units daily which kept his blood sugar lower than 200. His hemoglobin A1c checked was 14. Patient will therefore require insulin therapy. DKA occurred because of noncompliance to therapy. Due to affordability patient is prescribed NPH insulin to take 40 units in the morning and 20 units in the evening. He was also given refill for his Metformin to continue. Patient mentioned he has established primary care with a physician and has an appointment to see him tomorrow. Patient has clinically improved. Currently without any symptoms. Diabetic teaching given. Patient educated on hypoglycemia protocol. He is deemed stable for discharge. Resuscitation Status: 09/19/20 19:40 Resuscitation Status Routine Resuscitation Status: FULL: Full Resuscitation Lab Results: 09/21/20 06:48 09/22/20 04:16 Abnormal Lab Results - Last 48 hrs 09/20/20 13:55: Potassium 3.3 L, Chloride 116 H, Carbon Dioxide 15 L, Calcium 7.6 L 09/20/20 18:11: Potassium 3.4 L, Chloride 114 H, Carbon Dioxide 18 L, Anion Gap 8 L, BUN 8 L 09/20/20 18:11: Hemoglobin A1c Greater than 14.0 H 09/20/20 21:58: Potassium 3.1 L, Chloride 114 H, Carbon Dioxide 17 L, Anion Gap 8 L, BUN 7 L 09/21/20 05:14: Sodium 135 L, Potassium 3.3 L, Chloride 110 H, Carbon Dioxide 19 L, Anion Gap 9 L, BUN 5 L 09/21/20 06:48: RBC 4.38 L, Hgb 13.6 L, Hct 38.4 L, MCH 31.1 H, Plt Count 125 L, Plt Morphology Comment Appears Decreased L 09/21/20 07:19: Potassium 3.2 L, Chloride 111 H, Carbon Dioxide 20 L, Anion Gap 8 L, BUN 5 L 09/21/20 12:44: Potassium 3.4 L, Chloride 112 H, Carbon Dioxide 21 L, Anion Gap 8 L, BUN 5 L, Creatinine 0.69 L 09/22/20 04:16: Potassium 3.1 L, Chloride 110 H, Carbon Dioxide 19 L, BUN 7 L, Creatinine 0.56 L, Calcium 7.7 L Vitals: Vital Signs (12 hours) Temp Pulse Resp BP BP Pulse Ox 09/22/20 08:03 60 16 123/71 100 09/22/20 04:17 97.6 F 68 16 117/79 97 Weight Admit Weight 178 lb Weight 178 lb Most Recent Monitor Data Heart Rate from ECG 58 NIBP 114/62 Respiration from ECG 14 SpO2 99 Physical Exam: The patient was seen and examined on the day of discharge. General Appearance: NAD, awake alert Eye: PERRL, anicteric sclera Neck: supple, no JVD Respiratory: no wheezes, no rales Cardiovascular: RRR, no murmur Gastrointestinal: soft, non-tender, non-distended, normal bowel sounds Extremities: no cyanosis, no edema Skin: no rashes Neurological: cranial nerve grossly intact, no weakness, no focal deficits Musculoskeletal: normal strength PSYCH: normal affect, normal behavior, A&O x 3 Problem (1) DKA (diabetic ketoacidoses) Code(s): E11.10 - TYPE 2 DIABETES MELLITUS WITH KETOACIDOSIS WITHOUT COMA Status: Acute (2) Hyperlipidemia Code(s): E78.5 - HYPERLIPIDEMIA, UNSPECIFIED Status: Chronic Time Spent in discharge related activities (mins): 40 Plan Prescriptions: Lancets [Accu-Chek Lancets] 1 each MC TID #100 each Alcohol Antiseptic Pads [Alcohol Prep Pad] 1 each TP TID #1 box Syring-Needl,Disp,Insul,0.3 ml [Comfort EZ 0.3 ml Syringe] 1 each TID #100 disp.syrin Blood-Glucose Meter [Contour] 1 each MC TID #1 kit Blood Sugar Diagnostic [Contour] 1 each MC TID #100 strip NPH, Human Insulin Isophane [HumuLIN N] 40 unit SC DAILY #10 vial metFORMIN HCl [Metformin HCl] 1,000 mg PO BID #60 tablet Home Medications: Medication Instructions Recorded Confirmed Type Atorvastatin Calcium [Lipitor] 20 mg PO HS 09/21/20 09/21/20 History Alcohol Antiseptic Pads [Alcohol 1 each TP TID #1 box 09/22/20 Rx Prep Pad] Blood Sugar Diagnostic [Contour] 1 each MC TID #100 strip 09/22/20 Rx Blood-Glucose Meter [Contour] 1 each MC TID #1 kit 09/22/20 Rx Lancets [Accu-Chek Lancets] 1 each MC TID #100 each 09/22/20 Rx NPH, Human Insulin Isophane 40 unit SC DAILY #10 vial 09/22/20 Rx [HumuLIN N] Syring-Needl,Disp,Insul,0.3 ml 1 each MC TID #100 disp.syrin 09/22/20 Rx [Comfort EZ 0.3 ml Syringe] metFORMIN HCl [Metformin HCl] 1,000 mg PO BID #60 tablet 09/22/20 Rx Allergies: No Known Allergies Allergy (Verified 09/21/20 18:57) Discharge Instructions:: please call your Primary care provider to schedule follow up appointment for next week. Notify your physician with any questions or concerns. Obtain glucometer and check your sugar as instructed by physician and record Activity:: Activity as Tolerated Nourishment:: Diabetic Diet Referrals: Unknown,Unknown [Primary Care Provider] - 7 Days Disposition: HOME Quality CORE MEASURES:: N/A
[2020-09-22 12:05] VITALS: BP 110/59; TEMP 98.5
== END 2020-09-22 13:35 | disposition home or self-care (01) | DRG 639 ==
LOC: ERS 15:58 → ERHOLD 18:44 → 2NO 09-21 12:03
PROVIDERS: ADMIT Internal Medicine; ATTEND Internal Medicine
DX: E11.10 Type 2 diabetes mellitus with ketoacidosis without coma (principal); E78.00 Pure hypercholesterolemia, unspecified; E78.5 Hyperlipidemia, unspecified; D72.829 Elevated white blood cell count, unspecified; E87.6 Hypokalemia; Z20.822 Contact with and (suspected) exposure to COVID-19
CPT/HCPCS: 36415; 36416; 71045; 80048; 80053; 80306; 80307; 81003; 81015; 82010; 83036; 83735; 84100; 85025; 87635; 93005; 96365; 96366; J1650; J1815; J2543; J3475; J3480; J3490; U0003; U0005

== ENCOUNTER 2023-03-26 21:26 | Inpatient (IN) | payer SELFPAY ==
[2023-03-26 22:40] LABS: Troponin I Less than 0.010 ng/mL (< 0.028)
[2023-03-26 23:19] LABS: #Monocytes 0.3 thou/uL (0.11-0.59); %Basophils 0.8 % (0.0-1.0); %Eosinophils 0.8 % (0.0-10.0); %Lymphocytes 33.6 % (21.0-51.0); %Monocytes 6.3 % (0.0-10.0); %Neutrophils 58.3 % (42.0-75.0); Hematocrit 41.4 % (42.0-52.0); Hemoglobin 14.6 g/dL (14.0-18.0); Mean Corpuscular HGB CONC 35.3 g/dL (32.0-36.0); Mean Corpuscular Hemoglobin 28.5 pg (27.0-31.0); Mean Corpuscular Volume 80.7 fl (78.0-98.0); Mean Platelet Volume 10.2 fL (7.4-10.4); Platelet Count 271 10x3/uL (130-400); RBC Distribution Width 11.8 % (11.5-14.5); Red Blood Cell (RBC) Count 5.13 mill/uL (4.70-6.10); White Blood Cell (WBC) Count 5.1 10x3/uL (4.8-10.8)
[2023-03-26] MEDS ORDERED: Acetaminophen 500 MG TAB ONE (23:31)
[2023-03-26 23:33] LABS: SARS-CoV-2 NAA Rapid Test Not Detected (NotDetected)
[2023-03-26 23:47] LABS: ALT (SGPT) 20 U/L (8-55); AST (SGOT) 26 U/L (5-34); Albumin 3.3 g/dL (3.5-5.0); Alkaline Phosphatase 129 U/L (40-110); Anion Gap 17 mmol/L (10-20); BUN (Urea Nitrogen) 10 mg/dL (8.9-20.6); Bilirubin, Total 0.3 mg/dL (0.2-1.2); Calc. Creatinine Clearance 0 mL/min (70-130); Calcium 8.9 mg/dL (7.8-10.44); Carbon Dioxide 20 mmol/L (22-29); Chloride 96 mmol/L (98-107); Estimated GFR 125; Globulin 2.9 g/dL (2.4-3.5); Potassium 4.2 mmol/L (3.5-5.1); Protein, Total 6.2 g/dL (6.0-8.3); Sodium 129 mmol/L (136-145)
[2023-03-26 23:51] LABS: Glucose 663 mg/dL (70-105)
[2023-03-27 00:33] LABS: Actual Bicarbonate (HCO3v) 23.4 mEq/L (22-28); Base Excess -0.8 mEq/L (-2.0 to +3.0); Calcium, Ionized (venous) 1.08 mmol/L (1.16-1.32); Chloride (VBG) 98 mmol/L (98-106); Hematocrit-VBG 45 % (42.0-52.0); Hemoglobin (Hb) 15.3 g/dL (13.2-17.3); Sodium 130.2 mmol/L (133-146); pH (venous) 7.416 (7.32-7.43)
[2023-03-27 01:20] LABS: Lipase 26 U/L (8-78); Magnesium 1.8 mg/dL (1.6-2.6)
[2023-03-27 01:32] LABS: Bacteria/HPF None Seen HPF (None Seen); Bilirubin Negative (Negative); Blood, Urine Negative (Negative); CAUTI Indications for Culture Dysuria,urgency,freq; Clarity Clear (Clear); Glucose, Urine (Dipstick) Greater than 1000 mg/dL (Negative); Ketone, Urine Trace mg/dL (Negative); Leukocyte Negative Leu/uL (Negative); Nitrite Negative (Negative); Protein, Urine (Dipstick) 30 mg/dL (Neg-Trace); RBC/HPF None Seen HPF (0-3); Specific Gravity, Urine 1.039 (1.002-1.036); Squamous Epithelial None Seen HPF (0-3); Urobilinogen Normal mg/dL (Less than 2); WBC/HPF 0-3 HPF (0-3); pH, Urine 6.5 (5.0-9.0)
[2023-03-27 01:35] LABS: Urine Culture Reflex No No
[2023-03-27] MEDS ORDERED: Gabapentin 300 MG CAP PO SCH (03:15)
[2023-03-27] MEDS ORDERED: Glucagon 1 MG/ML KIT IM PRN ×2 (04:39→04:45)
[2023-03-27] MEDS ORDERED: Dextrose 50% Abboject 50 ML SYRINGE SLOW IVP PRN (04:39)
[2023-03-27] MEDS ORDERED: Dextrose 5% in Water 1,000 ML IV PRN ×2 (04:39→04:45)
[2023-03-27] MEDS ORDERED: Insulin Regular 300 UNITS/3 ML VIAL ONE (04:44)
[2023-03-27] MEDS ORDERED: Dextrose 50% Abboject 50 ML SYRINGE IVP PRN (04:45)
[2023-03-27] MEDS ORDERED: cefTRIAXone\\ROCEPHIN 1 GM in Sodium Chloride 0.9% 100 ML IVPB SCH (05:00)
[2023-03-27 05:16] LABS: Hemoglobin A1c Greater than 14.0 % (4.0-6.0)
[2023-03-27 05:32] LABS: Anion Gap 12 mmol/L (10-20); BUN (Urea Nitrogen) 9 mg/dL (8.9-20.6); Calc. Creatinine Clearance 0 mL/min (70-130); Calcium 8.6 mg/dL (7.8-10.44); Carbon Dioxide 23 mmol/L (22-29); Cardiac Risk 4.7 (Less than 4.5); Chloride 103 mmol/L (98-107); Cholesterol 228 mg/dl (< 200 Desired); Estimated GFR 135; Glucose 386 mg/dL (70-105); HDL Cholesterol 49 mg/dL (>60 Neg Risk); LDL Cholesterol, Calculated 155 mg/dL; Potassium 3.6 mmol/L (3.5-5.1); Sodium 134 mmol/L (136-145); Triglycerides 121 mg/dL (Less than 150)
[2023-03-27] MEDS ORDERED: Azithromycin 500 MG in Sodium Chloride 0.9% 250 ML 250 ML IVPB SCH (06:00)
[2023-03-27 07:31] VITALS: BMI 23.4
[2023-03-27] MEDS: Gabapentin 300 MG CAP PO SCH ×2 (07:58→15:05)
[2023-03-27] MEDS: Sodium Chloride 0.9% 1,000 ML IV SCH ×2 (07:58→15:44)
[2023-03-27] MEDS ORDERED: hydrALAZINE 25 MG TAB PO PRN (08:00)
[2023-03-27] MEDS ORDERED: Lisinopril 5 MG TAB PO SCH (09:00)
[2023-03-27] MEDS ORDERED: Insulin NPH Human Isophane 100 UNITS/ML (10 ML VIAL) SC SCH (09:00)
[2023-03-27] MEDS: HumaLOG 300 UNITS/3 ML VIAL SC PRN ×2 (12:44→17:58)
[2023-03-27 19:51] VITALS: BP 149/99; TEMP 97.7
[2023-03-28] MEDS ORDERED: Lisinopril 10 MG TAB PO SCH (09:00)
== END 2023-03-27 20:02 | disposition home or self-care (01) | DRG 871 ==
LOC: ERS 21:26 → T4-B 03-27 04:26
PROVIDERS: ADMIT Internal Medicine Nephrology; ATTEND Internal Medicine
DX: A41.9 Sepsis, unspecified organism (principal); E11.01 Type 2 diabetes mellitus with hyperosmolarity with coma; E87.1 Hypo-osmolality and hyponatremia; E11.40 Type 2 diabetes mellitus with diabetic neuropathy, unspecified; E11.65 Type 2 diabetes mellitus with hyperglycemia; I10 Essential (primary) hypertension; E78.5 Hyperlipidemia, unspecified; Z20.822 Contact with and (suspected) exposure to COVID-19; Z79.4 Long term (current) use of insulin; Z79.84 Long term (current) use of oral hypoglycemic drugs; Z79.899 Other long term (current) drug therapy
CPT/HCPCS: 36415; 36416; 71045; 80048; 80053; 80061; 81001; 82010; 82805; 83036; 83605; 83690; 83735; 83930; 84484; 85025; 87040; 87077; 87086; 93005; 96374; J0456; J1815; J7050

== ENCOUNTER 2023-04-30 07:48 | Observation (INO) | payer SELFPAY ==
[2023-04-30 08:20] LABS: #Monocytes 0.4 thou/uL (0.11-0.59); %Eosinophils 0.5 % (0.0-10.0); %Lymphocytes 40.5 % (21.0-51.0); %Monocytes 8.6 % (0.0-10.0); %Neutrophils 49.2 % (42.0-75.0); Hematocrit 41.4 % (42.0-52.0); Mean Corpuscular HGB CONC 36.2 g/dL (32.0-36.0); Mean Corpuscular Hemoglobin 28.6 pg (27.0-31.0); Mean Platelet Volume 10.3 fL (7.4-10.4); Platelet Count 249 10x3/uL (130-400); RBC Distribution Width 12.1 % (11.5-14.5); Red Blood Cell (RBC) Count 5.24 mill/uL (4.70-6.10); White Blood Cell (WBC) Count 4.1 10x3/uL (4.8-10.8)
[2023-04-30 08:43] LABS: ALT (SGPT) 14 U/L (8-55); AST (SGOT) 12 U/L (5-34); Albumin 3.9 g/dL (3.5-5.0); Alkaline Phosphatase 85 U/L (40-110); Anion Gap 17 mmol/L (10-20); BUN (Urea Nitrogen) 10 mg/dL (8.9-20.6); Bilirubin, Total 0.7 mg/dL (0.2-1.2); Calc. Creatinine Clearance 0 mL/min (70-130); Calcium 9.5 mg/dL (7.8-10.44); Carbon Dioxide 20 mmol/L (22-29); Chloride 97 mmol/L (98-107); Estimated GFR 129; Globulin 2.5 g/dL (2.4-3.5); Potassium 4.5 mmol/L (3.5-5.1); Protein, Total 6.4 g/dL (6.0-8.3); Sodium 129 mmol/L (136-145)
[2023-04-30 08:46] LABS: Glucose 464 mg/dL (70-105)
[2023-04-30 08:50] LABS: Bacteria/HPF None Seen HPF (None Seen); Bilirubin Negative (Negative); Blood, Urine Negative (Negative); CAUTI Indications for Culture Pelvic or flank pain; Clarity Clear (Clear); Glucose, Urine (Dipstick) Greater than 1000 mg/dL (Negative); Ketone, Urine Trace mg/dL (Negative); Leukocyte Negative Leu/uL (Negative); Nitrite Negative (Negative); Protein, Urine (Dipstick) 50 mg/dL (Neg-Trace); RBC/HPF None Seen HPF (0-3); Specific Gravity, Urine 1.043 (1.002-1.036); Squamous Epithelial 0-3 HPF (0-3); Urobilinogen Normal mg/dL (Less than 2); WBC/HPF None Seen HPF (0-3); pH, Urine 6.5 (5.0-9.0)
[2023-04-30 08:53] LABS: Urine Culture Reflex No No
[2023-04-30 08:59] LABS: Actual Bicarbonate (HCO3v) 24.3 mEq/L (22-28); Base Excess -0.6 mEq/L (-2.0 to +3.0); Calcium, Ionized (venous) 1.17 mmol/L (1.16-1.32); Chloride (VBG) 95 mmol/L (98-106); Hematocrit-VBG 45 % (42.0-52.0); Hemoglobin (Hb) 15.4 g/dL (13.2-17.3); Potassium (VBG) 4.25 mmol/L (3.70-5.30); Sodium 131.1 mmol/L (133-146); pH (venous) 7.391 (7.32-7.43)
[2023-04-30 09:00] LABS: Troponin I Less than 0.010 ng/mL (< 0.028)
[2023-04-30 09:00] LABS: SARS-CoV-2 NAA Rapid Test Not Detected (NotDetected)
[2023-04-30 09:03] LABS: Phosphorus 4.3 mg/dL (2.3-4.7)
[2023-04-30] MEDS ORDERED: Dextrose 50% Abboject 50 ML SYRINGE SLOW IVP PRN (11:08)
[2023-04-30] MEDS ORDERED: Glucagon 1 MG/ML KIT IM PRN (11:08)
[2023-04-30] MEDS ORDERED: Dextrose 5% in Water 1,000 ML IV PRN (11:08)
[2023-04-30] MEDS ORDERED: Ondansetron PF 4 MG/2 ML Vial IVP PRN (11:10)
[2023-04-30] MEDS ORDERED: Acetaminophen 325 MG TAB PO PRN (11:10)
[2023-04-30] MEDS ORDERED: Ondansetron ODT 4 MG TAB PO PRN (11:10)
[2023-04-30] MEDS ORDERED: DULoxetine 20 MG CAP PO SCH (12:15)
[2023-04-30] MEDS ORDERED: Lisinopril 10 MG TAB PO SCH (12:15)
[2023-04-30] MEDS ORDERED: Lisinopril 10 MG TAB ONE (12:39)
[2023-04-30] MEDS: Sodium Chloride 0.9% 1,000 ML IV SCH ×2 (12:44→22:23)
[2023-04-30 15:58] LABS: Anion Gap 13 mmol/L (10-20); BUN (Urea Nitrogen) 8 mg/dL (8.9-20.6); Calc. Creatinine Clearance 0 mL/min (70-130); Carbon Dioxide 23 mmol/L (22-29); Chloride 100 mmol/L (98-107); Estimated GFR 138; Glucose 244 mg/dL (70-105); Sodium 132 mmol/L (136-145)
[2023-04-30] MEDS: Gabapentin 400 MG CAP PO SCH ×2 (15:59→20:46)
[2023-04-30] MEDS ORDERED: hydrALAZINE 20 MG/ML VIAL SLOW IVP PRN (16:04)
[2023-04-30] MEDS ORDERED: hydrALAZINE 20 MG/ML VIAL ONE (16:10)
[2023-04-30 18:21] VITALS: BMI 22.1
[2023-04-30] MEDS: Insulin NPH Human Isophane 100 UNITS/ML (10 ML VIAL) SC SCH (19:05)
[2023-04-30] MEDS: HumaLOG 300 UNITS/3 ML VIAL SC PRN (20:47)
[2023-05-01] MEDS: HumaLOG 300 UNITS/3 ML VIAL SC PRN ×3 (05:31→23:36)
[2023-05-01] MEDS: Sodium Chloride 0.9% 1,000 ML IV SCH (05:34)
[2023-05-01 06:20] LABS: #Monocytes 0.3 thou/uL (0.11-0.59); #Neutrophils 1.8 thou/uL (1.40-6.50); %Basophils 0.8 % (0.0-1.0); %Eosinophils 0.5 % (0.0-10.0); %Lymphocytes 42.9 % (21.0-51.0); %Monocytes 7.5 % (0.0-10.0); Hematocrit 39.9 % (42.0-52.0); Hemoglobin 14.2 g/dL (14.0-18.0); Mean Corpuscular HGB CONC 35.6 g/dL (32.0-36.0); Mean Corpuscular Hemoglobin 28.4 pg (27.0-31.0); Mean Corpuscular Volume 79.8 fl (78.0-98.0); Mean Platelet Volume 10.1 fL (7.4-10.4); Platelet Count 244 10x3/uL (130-400); RBC Distribution Width 12.2 % (11.5-14.5); White Blood Cell (WBC) Count 3.7 10x3/uL (4.8-10.8)
[2023-05-01 06:42] LABS: Anion Gap 12 mmol/L (10-20); BUN (Urea Nitrogen) 10 mg/dL (8.9-20.6); Calc. Creatinine Clearance 0 mL/min (70-130); Calcium 8.9 mg/dL (7.8-10.44); Carbon Dioxide 23 mmol/L (22-29); Chloride 103 mmol/L (98-107); Estimated GFR 137; Glucose 244 mg/dL (70-105); Potassium 3.6 mmol/L (3.5-5.1); Sodium 134 mmol/L (136-145)
[2023-05-01] MEDS: Gabapentin 400 MG CAP PO SCH ×3 (08:31→20:23)
[2023-05-01] MEDS: DULoxetine 20 MG CAP PO SCH (08:32)
[2023-05-01] MEDS: Insulin NPH Human Isophane 100 UNITS/ML (10 ML VIAL) SC SCH ×2 (08:32→17:02)
[2023-05-01] MEDS ORDERED: Lisinopril 10 MG TAB PO SCH ×2 (09:00→21:00)
[2023-05-01 13:28] LABS: HIV (1/2) Antibody/Antigen Non-Reactive (NonReactive); HIV 1/2 INDEX 0.15 S/CO (<1.00); Thyroid Stimulating Hormone 2.6755 uIU/mL (0.35-4.94)
[2023-05-01] MEDS: Lisinopril 20 MG TAB PO SCH (20:24)
[2023-05-02] MEDS: HumaLOG 300 UNITS/3 ML VIAL SC PRN ×2 (05:02→12:04)
[2023-05-02 06:03] LABS: #Monocytes 0.3 thou/uL (0.11-0.59); #Neutrophils 2.1 thou/uL (1.40-6.50); %Basophils 0.7 % (0.0-1.0); %Eosinophils 0.9 % (0.0-10.0); %Monocytes 6.3 % (0.0-10.0); %Neutrophils 46.9 % (42.0-75.0); Hematocrit 42.5 % (42.0-52.0); Mean Corpuscular HGB CONC 35.3 g/dL (32.0-36.0); Mean Corpuscular Hemoglobin 28.4 pg (27.0-31.0); Mean Corpuscular Volume 80.3 fl (78.0-98.0); Mean Platelet Volume 9.8 fL (7.4-10.4); Platelet Count 256 10x3/uL (130-400); RBC Distribution Width 12.3 % (11.5-14.5); Red Blood Cell (RBC) Count 5.29 mill/uL (4.70-6.10); White Blood Cell (WBC) Count 4.4 10x3/uL (4.8-10.8)
[2023-05-02 06:28] LABS: Anion Gap 13 mmol/L (10-20); BUN (Urea Nitrogen) 22 mg/dL (8.9-20.6); Calc. Creatinine Clearance 132 mL/min (70-130); Calcium 9.1 mg/dL (7.8-10.44); Carbon Dioxide 23 mmol/L (22-29); Chloride 102 mmol/L (98-107); Estimated GFR 129; Glucose 223 mg/dL (70-105); Potassium 3.6 mmol/L (3.5-5.1); Sodium 134 mmol/L (136-145)
[2023-05-02] MEDS: DULoxetine 20 MG CAP PO SCH (08:02)
[2023-05-02] MEDS: Insulin NPH Human Isophane 100 UNITS/ML (10 ML VIAL) SC SCH (08:03)
[2023-05-02] MEDS: Lisinopril 20 MG TAB PO SCH (08:03)
[2023-05-02] MEDS: Gabapentin 400 MG CAP PO SCH ×2 (08:03→14:35)
[2023-05-02 12:14] VITALS: BP 145/101; TEMP 98.1
[2023-05-03 11:48] LABS: Syphilis Antibody Nonreactive (Nonreactive); Syphilis Antibody Index 0.06 S/CO (<1.00 Non-Reactive)
== END 2023-05-02 14:52 | disposition home or self-care (01) ==
LOC: ERS 07:48 → ERHOLD 11:12 → T4-B 17:46
PROVIDERS: ADMIT Student in an Organized Health Care Education/Training Program; ATTEND Hospitalist
DX: E11.42 Type 2 diabetes mellitus with diabetic polyneuropathy (principal); E11.65 Type 2 diabetes mellitus with hyperglycemia; I10 Essential (primary) hypertension; E44.0 Moderate protein-calorie malnutrition; E87.1 Hypo-osmolality and hyponatremia; F32.A Depression, unspecified; Z79.84 Long term (current) use of oral hypoglycemic drugs; Z79.899 Other long term (current) drug therapy; Z79.4 Long term (current) use of insulin; Z68.1 Body mass index [BMI] 19.9 or less, adult
CPT/HCPCS: 36415; 36416; 71045; 80048; 80053; 81001; 82010; 82550; 82805; 84100; 84443; 84484; 85025; 86780; 87389; 93005; 96360; 96361; 96374; G0378; J0360; J1815; J7050

== ENCOUNTER 2023-10-11 15:56 | Inpatient (IN) | payer SELFPAY ==
[2023-10-11 17:07] LABS: #Basophils 0.1 thou/uL (0.0-0.2); #Monocytes 0.7 thou/uL (0.11-0.59); %Basophils 0.8 % (0.0-1.0); %Eosinophils 0.3 % (0.0-10.0); %Lymphocytes 15.6 % (21.0-51.0); %Monocytes 7.8 % (0.0-10.0); %Neutrophils 75.2 % (42.0-75.0); Hematocrit 40.5 % (42.0-52.0); Hemoglobin 14.4 g/dL (14.0-18.0); Mean Corpuscular HGB CONC 35.6 g/dL (32.0-36.0); Mean Corpuscular Volume 87.1 fl (78.0-98.0); Mean Platelet Volume 10.7 fL (7.4-10.4); Platelet Count 327 10x3/uL (130-400); RBC Distribution Width 12.1 % (11.5-14.5); Red Blood Cell (RBC) Count 4.65 mill/uL (4.70-6.10); White Blood Cell (WBC) Count 9.3 10x3/uL (4.8-10.8)
[2023-10-11 17:28] LABS: ALT (SGPT) 16 U/L (8-55); AST (SGOT) 8 U/L (5-34); Albumin 3.6 g/dL (3.5-5.0); Alkaline Phosphatase 118 U/L (40-110); Anion Gap 21 mmol/L (10-20); BUN (Urea Nitrogen) 9 mg/dL (8.9-20.6); Bilirubin, Total 0.6 mg/dL (0.2-1.2); Calc. Creatinine Clearance 0 mL/min (70-130); Calcium 8.9 mg/dL (7.8-10.44); Carbon Dioxide 15 mmol/L (22-29); Chloride 88 mmol/L (98-107); Estimated GFR 99; Globulin 2.3 g/dL (2.4-3.5); Potassium 5.7 mmol/L (3.5-5.1); Protein, Total 5.9 g/dL (6.0-8.3)
[2023-10-11 17:32] LABS: Troponin I Less than 0.010 ng/mL (< 0.028)
[2023-10-11 17:39] LABS: Critical Call Chemistry NUR.LB16 @1739; Glucose 833 mg/dL (70-105); Sodium 118 mmol/L (136-145)
[2023-10-11] MEDS ORDERED: Ondansetron PF 4 MG/2 ML Vial ONE (17:40)
[2023-10-11 17:44] LABS: Actual Bicarbonate (HCO3v) 20.3 mEq/L (22-28); Analyzer IN Cardio ER; Base Excess -3.2 mEq/L (-2.0 to +3.0); Calcium, Ionized (venous) 1.15 mmol/L (1.16-1.32); Chloride (VBG) 89 mmol/L (98-106); Hematocrit-VBG 45 % (42.0-52.0); Hemoglobin (Hb) 15.4 g/dL (13.2-17.3); Potassium (VBG) 5.75 mmol/L (3.70-5.30); Sodium 121 mmol/L (133-146); pH (venous) 7.413 (7.32-7.43)
[2023-10-11 17:50] LABS: Lipase 26 U/L (8-78); Magnesium 1.8 mg/dL (1.6-2.6); Phosphorus 3.9 mg/dL (2.3-4.7)
[2023-10-11 17:55] LABS: Bilirubin Negative (Negative); Blood, Urine Negative (Negative); Glucose, Urine (Dipstick) >=1000 mg/dL (Negative); Ketone, Urine Negative (Negative); Leukocyte Negative (Negative); Nitrite Negative (Negative); Protein, Urine (Dipstick) Negative (Neg-Trace); Urobilinogen 0.2 mg/dL (Less than 2); pH, Urine 5.5 (5.0-9.0)
[2023-10-11 17:56] LABS: Bacteria/HPF None Seen HPF (None Seen); CAUTI Indications for Culture Alt mental st,lethar; Clarity Clear (Clear); RBC/HPF None Seen HPF (0-3); Specific Gravity, Urine 1.031 (1.002-1.036); Squamous Epithelial None Seen HPF (0-3); WBC/HPF None Seen HPF (0-3)
[2023-10-11 18:09] LABS: Urine Culture Reflex No No
[2023-10-11] MEDS ORDERED: Dextrose 5 %-0.45 % NaCl 1,000 ML IV PRN (18:19)
[2023-10-11] MEDS ORDERED: Bisacodyl 5 MG TAB PO PRN (18:19)
[2023-10-11] MEDS ORDERED: Bisacodyl 10 MG SUPP PR PRN (18:19)
[2023-10-11] MEDS ORDERED: Electrolyte Replacement Protocol 1 EACH IVPB SCH (18:19)
[2023-10-11] MEDS ORDERED: Dextrose 50% Abboject 50 ML SYRINGE SLOW IVP PRN ×2 (18:19→23:37)
[2023-10-11] MEDS ORDERED: NS 0.9% w/ 20 MEQ KCL 1,000 ML IV PRN ×2 (18:19)
[2023-10-11] MEDS ORDERED: Sodium Chloride 0.9% 1,000 ML IV PRN ×3 (18:19)
[2023-10-11] MEDS ORDERED: Ondansetron PF 4 MG/2 ML Vial IVP PRN (18:19)
[2023-10-11] MEDS ORDERED: D5 1/2 NS w/20 mEq KCL 1,000 ML IV PRN (18:19)
[2023-10-11] MEDS ORDERED: Senokot S 8.6-50 MG TAB PO PRN (18:19)
[2023-10-11] MEDS ORDERED: Acetaminophen 325 MG TAB PO PRN (18:19)
[2023-10-11] MEDS ORDERED: HUMULIN R 100 UNITS in Sodium Chloride 0.9% 100 ML IVPB SCH (18:30)
[2023-10-11] MEDS ORDERED: INSULIN REGULAR IN 0.9 % NACL 100 UNITS/100 ML BAG ONE (18:58)
[2023-10-11 19:04] LABS: Anion Gap 17 mmol/L (10-20); BUN (Urea Nitrogen) 8 mg/dL (8.9-20.6); Calc. Creatinine Clearance 0 mL/min (70-130); Calcium 9.1 mg/dL (7.8-10.44); Carbon Dioxide 17 mmol/L (22-29); Chloride 91 mmol/L (98-107); Estimated GFR 118; Potassium 5.2 mmol/L (3.5-5.1); Sodium 120 mmol/L (136-145)
[2023-10-11 19:08] LABS: Critical Call Chemistry NUR.LB16 @1907; Glucose 729 mg/dL (70-105)
[2023-10-11 22:32] VITALS: BMI 18.3
[2023-10-11] MEDS: Albuterol 2.5 MG (3 mL) NEB NEB SCH (22:39)
[2023-10-11] MEDS: Sodium Chloride 0.9% 1,000 ML IV PRN (23:18)
[2023-10-11 23:19] LABS: Anion Gap 10 mmol/L (10-20); BUN (Urea Nitrogen) 11 mg/dL (8.9-20.6); Calc. Creatinine Clearance 123 mL/min (70-130); Calcium 8.2 mg/dL (7.8-10.44); Carbon Dioxide 20 mmol/L (22-29); Chloride 102 mmol/L (98-107); Estimated GFR 129; Sodium 128 mmol/L (136-145)
[2023-10-11] MEDS: Calcium Chloride 1 GM/10 ML Abboject SYRINGE IVP SCH (23:23)
[2023-10-11] MEDS: Sodium Bicarb 50 mEq/50 ML VIAL IVP SCH (23:23)
[2023-10-11] MEDS: Atorvastatin Calcium 40 MG TAB PO SCH (23:27)
[2023-10-11 23:28] LABS: Critical Call Chemistry NUR.KS17@2327; Glucose 436 mg/dL (70-105)
[2023-10-11] MEDS ORDERED: Glucagon 1 MG/ML KIT IM PRN (23:37)
[2023-10-11] MEDS ORDERED: Dextrose 5% in Water 1,000 ML IV PRN (23:37)
[2023-10-12] MEDS: Insulin Glargine 30 UNITS/0.3 ML VIAL SC SCH ×2 (00:13→08:59)
[2023-10-12] MEDS: Gabapentin 400 MG CAP PO SCH (00:14)
[2023-10-12] MEDS: Sodium Chloride 0.9% 1,000 ML IV SCH (00:21)
[2023-10-12 02:34] LABS: #Eosinphils 0.1 thou/uL (0.0-0.7); #Monocytes 0.5 thou/uL (0.11-0.59); #Neutrophils 2.6 thou/uL (1.40-6.50); %Basophils 0.7 % (0.0-1.0); %Lymphocytes 40.9 % (21.0-51.0); %Monocytes 9.1 % (0.0-10.0); %Neutrophils 46.9 % (42.0-75.0); Hematocrit 34.8 % (42.0-52.0); Hemoglobin 12.4 g/dL (14.0-18.0); Mean Corpuscular HGB CONC 35.6 g/dL (32.0-36.0); Mean Corpuscular Hemoglobin 30.2 pg (27.0-31.0); Mean Corpuscular Volume 84.9 fl (78.0-98.0); Mean Platelet Volume 10.4 fL (7.4-10.4); Platelet Count 258 10x3/uL (130-400); RBC Distribution Width 11.9 % (11.5-14.5); White Blood Cell (WBC) Count 5.6 10x3/uL (4.8-10.8)
[2023-10-12 03:09] LABS: Hemoglobin A1c Greater than 14.0 % (4.0-6.0)
[2023-10-12 03:11] LABS: ALT (SGPT) 12 U/L (8-55); AST (SGOT) 8 U/L (5-34); Albumin 2.8 g/dL (3.5-5.0); Alkaline Phosphatase 90 U/L (40-110); Anion Gap 9 mmol/L (10-20); BUN (Urea Nitrogen) 12 mg/dL (8.9-20.6); Bilirubin, Direct 0.2 mg/dL (0.1-0.3); Bilirubin, Total 0.4 mg/dL (0.2-1.2); CK (CPK) 23 U/L (30-200); Calc. Creatinine Clearance 151 mL/min (70-130); Calcium 7.7 mg/dL (7.8-10.44); Carbon Dioxide 23 mmol/L (22-29); Chloride 103 mmol/L (98-107); Estimated GFR 137; Glucose 338 mg/dL (70-105); Magnesium 1.7 mg/dL (1.6-2.6); Phosphorus 3.3 mg/dL (2.3-4.7); Protein, Total 4.8 g/dL (6.0-8.3); Sodium 131 mmol/L (136-145)
[2023-10-12 03:28] LABS: Thyroid Stimulating Hormone 3.3998 uIU/mL (0.35-4.94)
[2023-10-12] MEDS: HumaLOG 300 UNITS/3 ML VIAL SC PRN (04:22)
[2023-10-12 07:48] VITALS: TEMP 98.2
[2023-10-12] MEDS: Magnesium 2 GM/50 ML(in water) 2 GM in Premix 1 BAG IVPB SCH (08:58)
[2023-10-12] MEDS ORDERED: Insulin Glargine 30 UNITS/0.3 ML VIAL SC SCH (21:00)
== END 2023-10-12 15:28 | disposition home or self-care (01) | DRG 638 ==
LOC: SUATTDRO 15:56 → ERS 15:56 → IMCU/EMU 18:12
PROVIDERS: ADMIT Family Medicine; ATTEND Family Medicine
DX: E10.10 Type 1 diabetes mellitus with ketoacidosis without coma (principal); E44.1 Mild protein-calorie malnutrition; Z68.1 Body mass index [BMI] 19.9 or less, adult; I10 Essential (primary) hypertension; E78.5 Hyperlipidemia, unspecified; E10.40 Type 1 diabetes mellitus with diabetic neuropathy, unspecified; E87.5 Hyperkalemia; E10.65 Type 1 diabetes mellitus with hyperglycemia; Z79.84 Long term (current) use of oral hypoglycemic drugs; Z79.899 Other long term (current) drug therapy; Z79.4 Long term (current) use of insulin
CPT/HCPCS: 36415; 36416; 71045; 80053; 80076; 81001; 82010; 82550; 82607; 82805; 83036; 83690; 83735; 84100; 84443; 84484; 85025; 86850; 86900; 86901; 87040; 93005; 93010; 93923; 93970; 94640; 96360; 96365; 96366; 96375; J1815; J2405; J3475; J7050

== ENCOUNTER 2024-05-31 21:52 | Inpatient (IN) | payer SELFPAY ==
[2024-05-31 22:48] LABS: Actual Bicarbonate (HCO3v) 20.7 mEq/L (22-28); Base Excess -1.9 mEq/L (-2.0 to +3.0); Calcium, Ionized (venous) 1.07 mmol/L (1.16-1.32); Chloride (VBG) 88 mmol/L (98-106); Hematocrit-VBG 42 % (42.0-52.0); Hemoglobin (Hb) 14.4 g/dL (13.2-17.3); Potassium (VBG) 4.53 mmol/L (3.70-5.30); Sodium 121 mmol/L (133-146); pH (venous) 7.462 (7.32-7.43)
[2024-05-31 23:03] LABS: #Basophils 0.04 10x3/uL (0.0-0.2); #Eosinophils Less than 0.03 10x3/uL (0.0-0.7); %Basophils 0.9 % (0.0-1.0); %Eosinophils 0.5 % (0.0-10.0); %Lymphocytes 31.6 % (21.0-51.0); %Monocytes 9.3 % (0.0-10.0); Hematocrit 39.2 % (42.0-52.0); Hemoglobin 13.9 g/dL (14.0-18.0); Mean Corpuscular HGB CONC 35.5 g/dL (32.0-36.0); Mean Corpuscular Volume 84.5 fL (78.0-98.0); Platelet Count 268 10x3/uL (130-400); RBC Distribution Width 11.9 % (11.5-14.5); Red Blood Cell (RBC) Count 4.64 mill/uL (4.70-6.10)
[2024-05-31 23:05] LABS: Troponin I Less than 0.010 ng/mL (< 0.028)
[2024-05-31 23:14] LABS: ALT (SGPT) 24 U/L (8-55); AST (SGOT) 26 U/L (5-34); Albumin 3.2 g/dL (3.5-5.0); Alkaline Phosphatase 168 U/L (40-110); Anion Gap 17 mmol/L (10-20); BUN (Urea Nitrogen) 11 mg/dL (8.9-20.6); Bilirubin, Total 0.6 mg/dL (0.2-1.2); Calc. Creatinine Clearance 0 mL/min (70-130); Carbon Dioxide 16 mmol/L (22-29); Chloride 91 mmol/L (98-107); Estimated GFR 106; Globulin 2.6 g/dL (2.4-3.5); Lipase 66 U/L (8-78); Potassium 4.5 mmol/L (3.5-5.1); Protein, Total 5.8 g/dL (6.0-8.3); Sodium 119 mmol/L (136-145)
[2024-05-31 23:23] LABS: Glucose 1033 mg/dL (70-105)
[2024-06-01] MEDS ORDERED: NS 0.9% w/ 20 MEQ KCL 1,000 ML ONE (00:33)
[2024-06-01] MEDS ORDERED: INSULIN REGULAR IN 0.9 % NACL 100 ML ONE (00:33)
[2024-06-01 01:18] LABS: Bacteria/HPF None Seen HPF (None Seen); Bilirubin Negative (Negative); Blood, Urine Negative (Negative); CAUTI Indications for Culture Pelvic or flank pain; Clarity Clear (Clear); Glucose, Urine (Dipstick) Greater than 1000 mg/dL (Negative); Ketone, Urine Negative (Negative); Leukocyte Negative Leu/uL (Negative); Nitrite Negative (Negative); Protein, Urine (Dipstick) Negative (Neg-Trace); RBC/HPF None Seen HPF (0-3); Specific Gravity, Urine 1.033 (1.002-1.036); Squamous Epithelial 0-3 HPF (0-3); Urobilinogen Normal mg/dL (Less than 2); WBC/HPF None Seen HPF (0-3)
[2024-06-01 01:22] LABS: Urine Culture Reflex No No
[2024-06-01 01:59] VITALS: BMI 19.6
[2024-06-01] MEDS ORDERED: Ondansetron ODT 4 MG TAB SL PRN (02:00)
[2024-06-01] MEDS ORDERED: Acetaminophen 325 MG TAB PO PRN (02:00)
[2024-06-01] MEDS ORDERED: INSULIN REGULAR IN 0.9 % NACL 100 ML IVPB SCH ×2 (02:00→02:15)
[2024-06-01] MEDS ORDERED: Ondansetron PF 4 MG/2 ML Vial IVP PRN ×2 (02:00→02:11)
[2024-06-01] MEDS ORDERED: Dextrose 5 %-0.45 % NaCl 1,000 ML IV PRN (02:02)
[2024-06-01] MEDS ORDERED: NS 0.9% w/ 20 MEQ KCL 1,000 ML IV PRN (02:02)
[2024-06-01] MEDS ORDERED: Dextrose 50% Abboject 50 ML SYRINGE SLOW IVP PRN ×2 (02:02→02:12)
[2024-06-01] MEDS ORDERED: Sodium Chloride 0.9% 1,000 ML IV PRN ×4 (02:02)
[2024-06-01] MEDS ORDERED: Electrolyte Replacement Protocol 1 EACH IVPB PRN (02:02)
[2024-06-01] MEDS ORDERED: Ondansetron ODT 4 MG TAB PO PRN (02:11)
[2024-06-01] MEDS ORDERED: Acetaminophen 650 MG Suppository PR PRN (02:11)
[2024-06-01] MEDS ORDERED: Dextrose 5% in Water 1,000 ML IV PRN (02:12)
[2024-06-01] MEDS ORDERED: Glucagon 1 MG/ML KIT IM PRN (02:12)
[2024-06-01] MEDS: Acetaminophen 325 MG TAB PO SCH (02:40)
[2024-06-01] MEDS: NS 0.9% w/ 20 MEQ KCL 1,000 ML IV PRN (02:42)
[2024-06-01] MEDS: NS 0.9% w/ 20 MEQ KCL 1,000 ML IV SCH (02:47)
[2024-06-01] MEDS: D5 1/2 NS w/20 mEq KCL 1,000 ML IV PRN (04:19)
[2024-06-01 04:54] LABS: Hemoglobin A1c Greater than 14.0 % (4.0-6.0)
[2024-06-01 06:28] LABS: Anion Gap 10 mmol/L (10-20); BUN (Urea Nitrogen) 7 mg/dL (8.9-20.6); Calc. Creatinine Clearance 166 mL/min (70-130); Calcium 7.5 mg/dL (7.8-10.44); Carbon Dioxide 22 mmol/L (22-29); Chloride 109 mmol/L (98-107); Estimated GFR 141; Glucose 238 mg/dL (70-105); Potassium 3.8 mmol/L (3.5-5.1); Sodium 137 mmol/L (136-145)
[2024-06-01] MEDS: Gabapentin 400 MG CAP PO SCH (07:44)
[2024-06-01] MEDS: Famotidine 20 MG TAB PO SCH (07:44)
[2024-06-01] MEDS: metFORMIN 500 MG TAB PO SCH (07:44)
[2024-06-01] MEDS: Famotidine/PF 20 mg/2ml Vial SLOW IVP SCH (07:45)
[2024-06-01] MEDS: Magnesium 2 GM/50 ML(in water) 2 GM in Premix 1 BAG IVPB SCH (07:45)
[2024-06-01] MEDS: Insulin NPH Human Isophane 100 UNITS/ML (10 ML VIAL) SC SCH (07:51)
[2024-06-01] MEDS: FLU (Fluarix Triv) TS24-25(6MOS UP)/PF 45 MCG/0.5 ML Syringe IM ONE (08:52)
[2024-06-01] MEDS: Lactated Ringer's 1,000 ML IV SCH (08:57)
[2024-06-01] MEDS: Insulin Lispro 100 UNIT/ML 10 ML VIAL SC PRN ×2 (08:59→20:49)
[2024-06-01 10:57] LABS: Anion Gap 9 mmol/L (10-20); BUN (Urea Nitrogen) 7 mg/dL (8.9-20.6); Calc. Creatinine Clearance 157 mL/min (70-130); Calcium 7.5 mg/dL (7.8-10.44); Carbon Dioxide 24 mmol/L (22-29); Chloride 105 mmol/L (98-107); Estimated GFR 138; Glucose 408 mg/dL (70-105); Potassium 3.5 mmol/L (3.5-5.1); Sodium 134 mmol/L (136-145)
[2024-06-01] MEDS: Potassium Chloride 20 MEQ TAB PO SCH (12:27)
[2024-06-01] MEDS: Atorvastatin Calcium 40 MG TAB PO SCH (20:47)
[2024-06-02 06:31] LABS: Anion Gap 10 mmol/L (10-20); BUN (Urea Nitrogen) 11 mg/dL (8.9-20.6); Calc. Creatinine Clearance 81 mL/min (70-130); Calcium 7.7 mg/dL (7.8-10.44); Carbon Dioxide 24 mmol/L (22-29); Chloride 102 mmol/L (98-107); Estimated GFR 102; Glucose 534 mg/dL (70-105); Potassium 4.4 mmol/L (3.5-5.1); Sodium 132 mmol/L (136-145)
[2024-06-02] MEDS: Insulin NPH Human Isophane 100 UNITS/ML (10 ML VIAL) SC SCH ×2 (09:08→21:17)
[2024-06-02] MEDS: glipiZIDE XL 5 mg ER.TAB PO SCH (11:51)
[2024-06-02] MEDS: Lactated Ringer's 1,000 ML IV SCH (11:58)
[2024-06-02] MEDS ORDERED: Insulin NPH Human Isophane 100 UNITS/ML (10 ML VIAL) SC SCH (21:00)
[2024-06-03 00:09] VITALS: TEMP 98.3
[2024-06-03 06:22] LABS: Anion Gap 12 mmol/L (10-20); BUN (Urea Nitrogen) 14 mg/dL (8.9-20.6); Calc. Creatinine Clearance 127 mL/min (70-130); Carbon Dioxide 25 mmol/L (22-29); Chloride 100 mmol/L (98-107); Estimated GFR 130; Glucose 342 mg/dL (70-105); Potassium 4.1 mmol/L (3.5-5.1); Sodium 133 mmol/L (136-145)
[2024-06-03] MEDS: glipiZIDE XL 10 mg ER.TAB PO SCH (09:54)
[2024-06-03] MEDS: Insulin NPH Human Isophane 100 UNITS/ML (10 ML VIAL) SC SCH (10:02)
[2024-06-03 17:24] VITALS: BP 113/74
== END 2024-06-03 18:46 | disposition home or self-care (01) | DRG 638 ==
LOC: ERS 21:52 → IMCU/EMU 06-01 01:00 → T4-B 06-01 13:56
PROVIDERS: ADMIT Student in an Organized Health Care Education/Training Program; ATTEND Internal Medicine
DX: E11.00 Type 2 diabetes mellitus with hyperosmolarity without nonketotic hyperglycemic-hyperosmolar coma (NKHHC) (principal); R64 Cachexia; Z68.1 Body mass index [BMI] 19.9 or less, adult; I10 Essential (primary) hypertension; E78.5 Hyperlipidemia, unspecified; Z79.84 Long term (current) use of oral hypoglycemic drugs; E11.40 Type 2 diabetes mellitus with diabetic neuropathy, unspecified
CPT/HCPCS: 36415; 36416; 71045; 80048; 80053; 81001; 82010; 82805; 83036; 83690; 83735; 83930; 84100; 84484; 85025; 93005; 96374; 96375; J1815; J3475; J3480; J7120

== ENCOUNTER 2024-07-04 16:03 | Observation (INO) | payer SELFPAY ==
[2024-07-04 17:10] LABS: Actual Bicarbonate (HCO3v) 17.7 mEq/L (22-28); Analyzer IN Cardio ER; Base Excess -8.3 mEq/L (-2.0 to +3.0); Calcium, Ionized (venous) 1.12 mmol/L (1.16-1.32); Chloride (VBG) 94 mmol/L (98-106); Hematocrit-VBG 40 % (42.0-52.0); Hemoglobin (Hb) 13.6 g/dL (13.2-17.3); Potassium (VBG) 4.34 mmol/L (3.70-5.30); Sodium 129 mmol/L (133-146); pH (venous) 7.282 (7.32-7.43)
[2024-07-04 17:14] LABS: #Basophils 0.05 10x3/uL (0.0-0.2); #Eosinophils Less than 0.03 10x3/uL (0.0-0.7); %Basophils 0.5 % (0.0-1.0); %Lymphocytes 15.8 % (21.0-51.0); %Monocytes 6.6 % (0.0-10.0); %Neutrophils 76.7 % (42.0-75.0); Hematocrit 40.1 % (42.0-52.0); Hemoglobin 13.7 g/dL (14.0-18.0); Mean Corpuscular HGB CONC 34.2 g/dL (32.0-36.0); Mean Corpuscular Volume 84.8 fL (78.0-98.0); Mean Platelet Volume 10.2 fL (7.4-10.4); Platelet Count 313 10x3/uL (130-400); Red Blood Cell (RBC) Count 4.73 mill/uL (4.70-6.10)
[2024-07-04 17:31] LABS: Phosphorus 4.5 mg/dL (2.3-4.7)
[2024-07-04 17:39] LABS: Troponin I Less than 0.010 ng/mL (< 0.028)
[2024-07-04 17:43] LABS: ALT (SGPT) 25 U/L (8-55); AST (SGOT) 14 U/L (5-34); Albumin 3.4 g/dL (3.5-5.0); Alkaline Phosphatase 119 U/L (40-110); Anion Gap 17 mmol/L (10-20); BUN (Urea Nitrogen) 13 mg/dL (8.9-20.6); Bilirubin, Total 0.2 mg/dL (0.2-1.2); Calc. Creatinine Clearance 0 mL/min (70-130); Calcium 8.1 mg/dL (7.8-10.44); Carbon Dioxide 17 mmol/L (22-29); Chloride 95 mmol/L (98-107); Estimated GFR 119; Globulin 2.8 g/dL (2.4-3.5); Glucose 588 mg/dL (70-105); Lipase 35 U/L (8-78); Magnesium 1.8 mg/dL (1.6-2.6); Potassium 4.2 mmol/L (3.5-5.1); Protein, Total 6.2 g/dL (6.0-8.3); Sodium 125 mmol/L (136-145)
[2024-07-04] MEDS ORDERED: NS 0.9% w/ 20 MEQ KCL 1,000 ML ONE (19:26)
[2024-07-04] MEDS ORDERED: Insulin Regular, Human 100 UNIT/ML 10 ML VIAL ONE (19:26)
[2024-07-04 20:27] LABS: Bacteria/HPF None Seen HPF (None Seen); Bilirubin Negative (Negative); Blood, Urine Negative (Negative); CAUTI Indications for Culture Alt mental st,lethar; Clarity Clear (Clear); Glucose, Urine (Dipstick) Greater than 1000 mg/dL (Negative); Ketone, Urine 60 mg/dL (Negative); Leukocyte Negative Leu/uL (Negative); Nitrite Negative (Negative); Protein, Urine (Dipstick) Negative (Neg-Trace); RBC/HPF None Seen HPF (0-3); Specific Gravity, Urine 1.039 (1.002-1.036); Squamous Epithelial None Seen HPF (0-3); Urobilinogen Normal mg/dL (Less than 2); WBC/HPF None Seen HPF (0-3); pH, Urine 5.5 (5.0-9.0)
[2024-07-04 20:29] LABS: Urine Culture Reflex No No
[2024-07-04 22:32] LABS: Anion Gap 12 mmol/L (10-20); BUN (Urea Nitrogen) 9 mg/dL (8.9-20.6); Calc. Creatinine Clearance 0 mL/min (70-130); Calcium 7.7 mg/dL (7.8-10.44); Carbon Dioxide 15 mmol/L (22-29); Chloride 107 mmol/L (98-107); Estimated GFR 132; Glucose 389 mg/dL (70-105); Sodium 130 mmol/L (136-145)
[2024-07-04 22:51] LABS: Actual Bicarbonate (HCO3v) 20.3 mEq/L (22-28); Analyzer IN Cardio ER; Base Excess -4.2 mEq/L (-2.0 to +3.0); Chloride (VBG) 104 mmol/L (98-106); Hematocrit-VBG 36 % (42.0-52.0); Hemoglobin (Hb) 12.2 g/dL (13.2-17.3); Sodium 135 mmol/L (133-146); pH (venous) 7.379 (7.32-7.43)
[2024-07-05] MEDS ORDERED: INSULIN REGULAR IN 0.9 % NACL 100 ML ONE (00:07)
[2024-07-05] MEDS ORDERED: Potassium Chloride 20 MEQ (100 mL) BAG ONE (00:10)
[2024-07-05] MEDS ORDERED: Electrolyte Replacement Protocol FS PRN (00:20)
[2024-07-05] MEDS ORDERED: Dextrose 50% Abboject 50 ML SYRINGE SLOW IVP PRN ×2 (00:30→06:38)
[2024-07-05] MEDS ORDERED: Glucagon 1 MG/ML KIT IM PRN ×2 (00:30→06:38)
[2024-07-05] MEDS ORDERED: Sodium Chloride 0.9% 1,000 ML IV PRN ×4 (00:30)
[2024-07-05] MEDS ORDERED: Dextrose 5% in Water 1,000 ML IV PRN ×2 (00:30→06:38)
[2024-07-05] MEDS ORDERED: NS 0.9% w/ 20 MEQ KCL 1,000 ML/1,000 ML BAG IV PRN ×2 (00:30)
[2024-07-05] MEDS ORDERED: Insulin Reg, Human 100 UNITS in Sodium Chloride 0.9% 100 ML IVPB SCH (00:30)
[2024-07-05] MEDS ORDERED: ADD ELECTROLYTE REPLACEMENT SET TO PROFILE FS SCH (00:30)
[2024-07-05] MEDS ORDERED: Dextrose 5 %-0.45 % NaCl 1,000 ML IV PRN (00:30)
[2024-07-05] MEDS ORDERED: Ondansetron PF 4 MG/2 ML Vial IVP PRN (00:30)
[2024-07-05] MEDS ORDERED: Ondansetron ODT 4 MG TAB SL PRN (00:30)
[2024-07-05 02:46] LABS: Anion Gap 10 mmol/L (10-20); BUN (Urea Nitrogen) 8 mg/dL (8.9-20.6); Calc. Creatinine Clearance 0 mL/min (70-130); Calcium 7.8 mg/dL (7.8-10.44); Carbon Dioxide 22 mmol/L (22-29); Chloride 110 mmol/L (98-107); Estimated GFR 132; Glucose 250 mg/dL (70-105); Magnesium 1.8 mg/dL (1.6-2.6); Potassium 3.8 mmol/L (3.5-5.1); Sodium 138 mmol/L (136-145)
[2024-07-05 02:47] LABS: Phosphorus 2.6 mg/dL (2.3-4.7)
[2024-07-05] MEDS ORDERED: D5 1/2 NS w/20 mEq KCL 1,000 ML ONE (03:14)
[2024-07-05] MEDS: D5 1/2 NS w/20 mEq KCL 1,000 ML IV PRN (03:21)
[2024-07-05] MEDS ORDERED: Dextrose 10% in Water 250 ML ONE ×2 (03:32→06:32)
[2024-07-05 04:22] LABS: #Basophils 0.04 10x3/uL (0.0-0.2); %Basophils 0.7 % (0.0-1.0); %Eosinophils 0.7 % (0.0-10.0); %Lymphocytes 37.6 % (21.0-51.0); %Monocytes 7.4 % (0.0-10.0); %Neutrophils 53.2 % (42.0-75.0); Hematocrit 32.4 % (42.0-52.0); Hemoglobin 11.2 g/dL (14.0-18.0); Mean Corpuscular HGB CONC 34.6 g/dL (32.0-36.0); Mean Corpuscular Hemoglobin 28.6 pg (27.0-31.0); Mean Corpuscular Volume 82.7 fL (78.0-98.0); Mean Platelet Volume 10.3 fL (7.4-10.4); Platelet Count 253 10x3/uL (130-400); Red Blood Cell (RBC) Count 3.92 mill/uL (4.70-6.10)
[2024-07-05 04:46] LABS: Cardiac Risk 2.6 (Less than 4.5); Cholesterol 120 mg/dl (< 200 Desired); HDL Cholesterol 47 mg/dL (>60 Neg Risk); LDL Cholesterol, Calculated 55 mg/dL; Magnesium 1.7 mg/dL (1.6-2.6); Triglycerides 91 mg/dL (Less than 150)
[2024-07-05 04:50] LABS: Hemoglobin A1c Greater than 14.0 % (4.0-6.0)
[2024-07-05 07:05] LABS: Anion Gap 10 mmol/L (10-20); BUN (Urea Nitrogen) 8 mg/dL (8.9-20.6); Calc. Creatinine Clearance 0 mL/min (70-130); Calcium 7.7 mg/dL (7.8-10.44); Carbon Dioxide 22 mmol/L (22-29); Chloride 111 mmol/L (98-107); Estimated GFR 145; Glucose 133 mg/dL (70-105); Potassium 3.7 mmol/L (3.5-5.1); Sodium 139 mmol/L (136-145)
[2024-07-05 08:55] VITALS: BMI 28.6
[2024-07-05] MEDS ORDERED: Insulin NPH Human Isophane 100 UNITS/ML (10 ML VIAL) SC SCH (09:00)
[2024-07-05] MEDS: Magnesium 2 GM/50 ML(in water) 2 GM in Premix 1 BAG IVPB SCH (09:45)
[2024-07-05] MEDS: metFORMIN 500 MG TAB PO SCH (09:45)
[2024-07-05] MEDS: Enoxaparin 40 MG (0.4 mL) SYRINGE SC SCH (09:45)
[2024-07-05] MEDS: Insulin NPH Human Isophane 100 UNITS/ML (10 ML VIAL) SC SCH ×2 (11:34→20:02)
[2024-07-05] MEDS: Insulin Regular, Human 100 UNIT/ML 10 ML VIAL IVP SCH (11:35)
[2024-07-05] MEDS: Insulin Regular, Human 100 UNIT/ML 10 ML VIAL SC PRN ×2 (12:08→20:03)
[2024-07-05 12:33] LABS: Anion Gap 12 mmol/L (10-20); BUN (Urea Nitrogen) 9 mg/dL (8.9-20.6); Calc. Creatinine Clearance 211 mL/min (70-130); Carbon Dioxide 22 mmol/L (22-29); Chloride 107 mmol/L (98-107); Estimated GFR 142; Glucose 213 mg/dL (70-105); Potassium 4.1 mmol/L (3.5-5.1); Sodium 137 mmol/L (136-145)
[2024-07-06 05:26] LABS: #Basophils 0.03 10x3/uL (0.0-0.2); %Basophils 0.6 % (0.0-1.0); %Lymphocytes 43.6 % (21.0-51.0); %Monocytes 5.6 % (0.0-10.0); Hemoglobin 11.7 g/dL (14.0-18.0); Mean Corpuscular HGB CONC 34.4 g/dL (32.0-36.0); Mean Corpuscular Hemoglobin 28.5 pg (27.0-31.0); Mean Corpuscular Volume 82.7 fL (78.0-98.0); Mean Platelet Volume 10.3 fL (7.4-10.4); Platelet Count 239 10x3/uL (130-400); Red Blood Cell (RBC) Count 4.11 mill/uL (4.70-6.10)
[2024-07-06 05:45] LABS: Anion Gap 11 mmol/L (10-20); BUN (Urea Nitrogen) 10 mg/dL (8.9-20.6); Calc. Creatinine Clearance 191 mL/min (70-130); Calcium 7.7 mg/dL (7.8-10.44); Carbon Dioxide 25 mmol/L (22-29); Chloride 104 mmol/L (98-107); Estimated GFR 137; Glucose 210 mg/dL (70-105); Potassium 3.9 mmol/L (3.5-5.1); Sodium 136 mmol/L (136-145)
[2024-07-06 07:46] VITALS: TEMP 98.4
[2024-07-06] MEDS: Acetaminophen 325 MG TAB PO PRN (08:52)
[2024-07-06] MEDS: FLU (Fluarix Triv) TS24-25(6MOS UP)/PF 45 MCG/0.5 ML Syringe IM ONE (12:45)
[2024-07-06 16:12] VITALS: BP 112/75
== END 2024-07-06 19:41 | disposition home or self-care (01) ==
LOC: ERS 16:03 → INTOOBSV 07-05 00:15 → ERHOLD 07-05 00:15 → T4-A 07-05 08:20
PROVIDERS: ADMIT Internal Medicine; ATTEND Internal Medicine
DX: E11.10 Type 2 diabetes mellitus with ketoacidosis without coma (principal); E78.5 Hyperlipidemia, unspecified; M21.372 Foot drop, left foot; M21.371 Foot drop, right foot; D64.9 Anemia, unspecified; F41.9 Anxiety disorder, unspecified; Z79.84 Long term (current) use of oral hypoglycemic drugs; Z79.4 Long term (current) use of insulin; Z79.01 Long term (current) use of anticoagulants
CPT/HCPCS: 36415; 36416; 71045; 80048; 80053; 80061; 81001; 82010; 82805; 83036; 83605; 83690; 83735; 84100; 84484; 85025; 87428; 90656; 93005; 96365; 96366; 96367; 96368; 96372; 96375; 96376; G0378; J1650; J1815; J3475; J3480; J7030; J7042

== ENCOUNTER 2025-04-27 10:19 | Inpatient (IN) | payer SELFPAY ==
[2025-04-27] MEDS ORDERED: Cefepime 2 GM VIAL ONE (11:15)
[2025-04-27] MEDS ORDERED: Vancomycin 1 GM/200 ML (FROZEN) BAG ONE (11:16)
[2025-04-27 11:20] LABS: #Basophils 0.03 10x3/uL (0.0-0.2); #Eosinophils Less than 0.03 10x3/uL (0.0-0.7); #Monocytes 0.53 10x3/uL (0.11-0.59); #Neutrophils 6.97 10x3/uL (1.40-6.50); %Basophils 0.4 % (0.0-1.0); %Eosinophils 0.1 % (0.0-10.0); %Lymphocytes 7.9 % (21.0-51.0); %Monocytes 6.4 % (0.0-10.0); %Neutrophils 84.7 % (42.0-75.0); Hematocrit 38.7 % (42.0-52.0); Hemoglobin 13.5 g/dL (14.0-18.0); Mean Corpuscular Hemoglobin 29.2 pg (27.0-31.0); Mean Corpuscular Volume 83.6 fL (78.0-98.0); Platelet Count 226 10x3/uL (130-400); Red Blood Cell (RBC) Count 4.63 mill/uL (4.70-6.10); White Blood Cell (WBC) Count 8.23 10x3/uL (4.8-10.8)
[2025-04-27 11:53] LABS: ALT (SGPT) 20 U/L (Less than 45); AST (SGOT) 11 U/L (11-34); Albumin 3.1 g/dL (3.1-4.5); Alkaline Phosphatase 153 U/L (40-110); Anion Gap 12 mmol/L (10-20); BUN (Urea Nitrogen) 7 mg/dL (8.9-20.6); Bilirubin, Total 0.6 mg/dL (0.3-1.2); Calc. Creatinine Clearance 0 mL/min (70-130); Calcium 8.8 mg/dL (7.8-10.44); Carbon Dioxide 21 mmol/L (22-29); Chloride 100 mmol/L (98-107); Globulin 3.2 g/dL (2.4-3.5); Glucose 475 mg/dL (70-105); Potassium 3.8 mmol/L (3.5-5.1); Sodium 129 mmol/L (136-145)
[2025-04-27] MEDS ORDERED: Glucagon 1 MG/ML KIT IM PRN ×2 (12:42→21:14)
[2025-04-27] MEDS ORDERED: Acetaminophen 325 MG TAB PO PRN ×2 (12:42→21:15)
[2025-04-27] MEDS ORDERED: Dextrose 50% Abboject 50 ML SYRINGE SLOW IVP PRN ×2 (12:42→21:14)
[2025-04-27] MEDS ORDERED: Ondansetron PF 4 MG/2 ML Vial IVP PRN ×2 (12:42→21:15)
[2025-04-27] MEDS ORDERED: Melatonin 3 MG TAB PO PRN ×2 (12:42→21:16)
[2025-04-27] MEDS ORDERED: SUCCINYLCHOLINE/SOD CL,ISO/PF 200 MG/10 ML SYRINGE FS ONE (17:45)
[2025-04-27] MEDS ORDERED: PHENYLEPHRINE-NS 100 MCG/ML 10 ML SYRINGE ONE (17:45)
[2025-04-27] MEDS ORDERED: Lidocaine 1% PF 5 ML VIAL ONE (17:45)
[2025-04-27] MEDS ORDERED: PROPOFOL 200 MG/20 ML VIAL ONE (17:45)
[2025-04-27] MEDS ORDERED: HYDROcodone/Acetaminophen 10/325 mg Tablet PO PRN ×4 (19:02→21:16)
[2025-04-27] MEDS ORDERED: Communication Order-Pharmacy FS SCH (19:15)
[2025-04-27] MEDS ORDERED: Vancomycin 1 GM in Premix 1 BAG IVPB SCH (21:00)
[2025-04-27 22:04] VITALS: BMI 22.6
[2025-04-27] MEDS: Vancomycin 1 GM in Premix 1 BAG IVPB SCH ×2 (23:11→23:14)
[2025-04-27] MEDS: Famotidine/PF 20 mg/2ml Vial SLOW IVP SCH (23:14)
[2025-04-27 23:46] LABS: #Basophils Less than 0.03 10x3/uL (0.0-0.2); #Eosinophils Less than 0.03 10x3/uL (0.0-0.7); #Monocytes 0.18 10x3/uL (0.11-0.59); #Neutrophils 8.07 10x3/uL (1.40-6.50); %Basophils 0.2 % (0.0-1.0); %Eosinophils 0.0 % (0.0-10.0); %Lymphocytes 4.3 % (21.0-51.0); %Monocytes 2.1 % (0.0-10.0); %Neutrophils 93.2 % (42.0-75.0); Hematocrit 35.3 % (42.0-52.0); Hemoglobin 11.9 g/dL (14.0-18.0); Mean Corpuscular Hemoglobin 28.5 pg (27.0-31.0); Mean Corpuscular Volume 84.7 fL (78.0-98.0); Platelet Count 230 10x3/uL (130-400); Red Blood Cell (RBC) Count 4.17 mill/uL (4.70-6.10); White Blood Cell (WBC) Count 8.66 10x3/uL (4.8-10.8)
[2025-04-28 00:17] LABS: Anion Gap 14 mmol/L (10-20); BUN (Urea Nitrogen) 10 mg/dL (8.9-20.6); Calc. Creatinine Clearance 170 mL/min (70-130); Calcium 8.5 mg/dL (7.8-10.44); Carbon Dioxide 19 mmol/L (22-29); Chloride 104 mmol/L (98-107); Glucose 441 mg/dL (70-105); Magnesium 1.6 mg/dL (1.6-2.6); Potassium 4.4 mmol/L (3.5-5.1); Sodium 133 mmol/L (136-145)
[2025-04-28] MEDS: Magnesium 2 GM/50 ML(in water) 2 GM in Premix 1 BAG IVPB SCH (01:28)
[2025-04-28] MEDS: Vancomycin 1 GM in Premix 1 BAG IVPB SCH (05:44)
[2025-04-28 05:54] LABS: Calc. Creatinine Clearance 217.0 mL/min (70-130); Vancomycin, Random 10.1 ug/mL (See Comment)
[2025-04-28] MEDS: metFORMIN 500 MG TAB PO SCH (08:16)
[2025-04-28] MEDS: Famotidine/PF 20 mg/2ml Vial SLOW IVP SCH (08:18)
[2025-04-28] MEDS: Insulin NPH Human Isophane 100 UNITS/ML (10 ML VIAL) SC SCH (10:03)
[2025-04-28] MEDS: PNEUMOC 20-VAL CONJ-DIP CRM/PF 0.5 ML SYRINGE IM ONE (11:14)
[2025-04-29] MEDS: Gabapentin 300 MG CAP PO SCH (21:05)
[2025-04-30 05:54] LABS: #Basophils Less than 0.03 10x3/uL (0.0-0.2); #Eosinophils Less than 0.03 10x3/uL (0.0-0.7); #Monocytes 0.46 10x3/uL (0.11-0.59); #Neutrophils 3.50 10x3/uL (1.40-6.50); %Basophils 0.4 % (0.0-1.0); %Eosinophils 0.4 % (0.0-10.0); %Lymphocytes 28.3 % (21.0-51.0); %Monocytes 8.2 % (0.0-10.0); %Neutrophils 62.5 % (42.0-75.0); Hematocrit 35.3 % (42.0-52.0); Hemoglobin 12.1 g/dL (14.0-18.0); Mean Corpuscular Hemoglobin 28.6 pg (27.0-31.0); Mean Corpuscular Volume 83.5 fL (78.0-98.0); Platelet Count 285 10x3/uL (130-400); Red Blood Cell (RBC) Count 4.23 mill/uL (4.70-6.10); White Blood Cell (WBC) Count 5.59 10x3/uL (4.8-10.8)
[2025-04-30 06:10] LABS: Vancomycin, Random 13.1 ug/mL (See Comment)
[2025-04-30 06:11] LABS: Anion Gap 14 mmol/L (10-20); BUN (Urea Nitrogen) 9 mg/dL (8.9-20.6); Calc. Creatinine Clearance 228 mL/min (70-130); Calcium 8.6 mg/dL (7.8-10.44); Carbon Dioxide 25 mmol/L (22-29); Chloride 105 mmol/L (98-107); Glucose 123 mg/dL (70-105); Potassium 3.5 mmol/L (3.5-5.1); Sodium 140 mmol/L (136-145)
[2025-04-30] MEDS: Lisinopril 10 MG TAB PO SCH (09:21)
[2025-04-30 15:40] VITALS: BP 127/84
[2025-04-30 17:39] VITALS: TEMP 98.6
[2025-04-30] MEDS ORDERED: PNEUMOC 20-VAL CONJ-DIP CRM/PF 0.5 ML SYRINGE IM ONE (20:30)
== END 2025-04-30 17:30 | disposition home or self-care (01) | DRG 514 ==
LOC: ERS 10:19 → SURG B 13:01 → ERS 14:28
PROVIDERS: ADMIT Family Medicine; ATTEND Internal Medicine
PROC: 0LB80ZZ Excision of Left Hand Tendon, Open Approach (ICD-10-PCS; principal; 2025-04-27)
PROC: 3E03329 Introduction of Other Anti-infective into Peripheral Vein, Percutaneous Approach (ICD-10-PCS; 2025-04-27)
DX: M65.842 Other synovitis and tenosynovitis, left hand (principal); I10 Essential (primary) hypertension; E78.5 Hyperlipidemia, unspecified; E11.40 Type 2 diabetes mellitus with diabetic neuropathy, unspecified; D64.9 Anemia, unspecified; F41.9 Anxiety disorder, unspecified; Z91.148 Patient's other noncompliance with medication regimen for other reason; E11.65 Type 2 diabetes mellitus with hyperglycemia; Z79.4 Long term (current) use of insulin; Z79.899 Other long term (current) drug therapy; Z79.84 Long term (current) use of oral hypoglycemic drugs
CPT/HCPCS: 36415; 36416; 80048; 80053; 80202; 82565; 83036; 83605; 83735; 85025; 87040; 87070; 87077; 87186; 87205; 93005; 93010; 96365; 96367; 96375; J0665; J0692; J1100; J1815; J2704; J3373; J3475; J7030